=== PATIENT | female | born 1950 | race Caucasian/White ===

== ENCOUNTER 2019-04-28 03:56 | Emergency (ER) | payer OTHER, SELFPAY ==
[2019-04-28 04:00] VITALS: BP 165/105; PULSE 77; RESP 18; TEMP 36.6; O2SAT 98
--- NOTE | 2019-04-28 04:01 | ECG_ITS ---
Measurements Intervals Oliver Rate: 66 P: 56 OR: 124 QRS: 29 QRSD: 83 T: 22 QT: 384 QTc: 404 Interpretive Statements SINUS RHYTHM EARLY PRECORDIAL R/S TRANSITION BASELINE ARTIFACT- II, III, AVR, AVL, AVF BORDERLINE ECG Electronically Signed On 04-28-2019 8:42:55 CDT by Simon Robin D.O.
--- NOTE | 2019-04-28 04:26 | ED.GENADULT ---
HPI - General Adult General Chief complaint: Chest Pain Stated complaint: left arm pain History of Present Illness HPI narrative: Caren is a 68-year-old woman with a past medical history of tobacco abuse that presented to the emergency department with pain just medial to her left shoulder blade. She woke up with pain in her left shoulder but so she took some Aleve. It did not improvement started to radiate down into her left hand. After that she became concerned and came to the emergency department. She denies any true chest pain, nausea, vomiting, syncope/near syncope and diaphoresis. The chest pain is not worse with activity. It is worse with pushing out with her arm. She took 1 baby aspirin before she came in. Related Data Allergies Allergy/AdvReac Type Severity Reaction Status Date / Time acetaminophen Allergy Unknown NAUSEA Verified 04/28/19 04:34 codeine Allergy Unknown NAUSEA Verified 04/28/19 04:34 VICODEN Allergy Unknown NAUSEA Uncoded 04/28/19 04:34 Review of Systems Constitutional: Constitutional: Denies chills, Denies fatigue, Denies fever(s) and Denies weakness Eyes: Eyes: Reports no additional eye complaints ENT: Reports system reviewed and no additional complaints, except as documented Cardiovascular: Cardiovascular: Reports no additional cardiovascular complaints Respiratory: Respiratory: Reports no additional respiratory complaints Gastrointestinal: Gastrointestinal: Reports no additional gastrointestinal complaints Genitourinary: Genitourinary: Reports no additional female genitourinary complaints Musculoskeletal: Musculoskeletal: Reports as per HPI Integumentary/Breasts: Skin/Breast: Reports system reviewed and no additional complaints, except as docu Neurologic: Reports system reviewed and no additional complaints, except as documented Psychiatric: Psychiatric: Reports no additional psychiatric complaints Endocrine: Endocrine: Reports no additional endocrine complaints Hematologic/Lymphatic: Hematologic/Lymphatic: Reports no additional hematologic/lymphatic complaints Allergic/Immunologic: Allergic/Immunologic: Reports no additional allergic/immunologic complaints Exam Const: General: no acute distress and alert Orientation/consciousness: patient oriented x3 Limitations: No altered mental status HENMT: Head: normal to inspection Other: normocephalic, atraumatic Eyes: Conjunctivae: conjunctivae normal Pupils: Equal, round and reactive pupils present Neck: Neck: normal visual inspection Chest: Chest palpation & inspection: normal inspection of the chest Resp: Effort & Inspection: normal respiratory effort, not labored, not tachypneic and no use of accessory muscles Auscultation: clear to auscultation bilaterally Cardio: Rate: regular rate Rhythm: regular rhythm Heart sounds: Murmur heart sound present Other: no lower extremity edema GI: Inspection: non-distended GI Palp: Yes Soft to palpation, No Tenderness to palpation present (GI) and No Guarding due to palpation present (GI) : General: Yes no CVA tenderness Skin: General skin exam: normal color Rashes: no rashes Neuro: General: patient oriented x3 and moves all extremities Extrem: General: normal to inspection and no edema Other: has tenderness to palpation over the muscles just medial to the left shoulder blade. 5/5 strength in all planes of motion of the shoulder. Negative crossover, negative empty can, negative Troy's, pain was elicited on resisted shoulder flexion. Spurling's maneuver causes reproducible pain in the area just medial to the left shoulder blade. no TTP of the shoulder. Psych: Mental Status: mental status grossly normal Course Course Emergency Course: Caren seen and evaluated. EKG was done that showed normal sinus rhythm at 66 bpm, normal axis, and no ST elevation or depression. Labs were ordered as well as aspirin and nitro. with the EKG normal and her heart score is 3 making cardiac etio
[2019-04-28] MEDS: NITROGLYCERIN SL 0.4 MG TABLET SUBLINGUAL (04:39)
[2019-04-28] MEDS: ASPIRIN 81 MG ENTERIC TABLET 243 MG PO (04:43)
[2019-04-28] MEDS: ASPIRIN 81 MG CHEWABLE TABLET (04:47)
[2019-04-28 04:51] VITALS: BP 122/69; PULSE 80; RESP 20
[2019-04-28 04:54] LABS: Basophils Absolute Auto 0.04 K/mm3 (0.00-0.10); Basophils Percent Auto 0.8 % (0.0-1.0); Eosinophils Absolute Auto 0.06 K/mm3 (0.02-0.50); Eosinophils Percent Auto 1.2 % (1.0-6.0); Hematocrit 38.7 % (35.0-42.0); Hemoglobin 13.2 g/dL (11.7-13.8); Immature Granulocyte Absolute 0.01 K/mm3 (0.00-0.00); Immature Granulocyte Percent A 0.2 % (0.0-0.0); Lymphocytes Absolute Auto 1.86 K/mm3 (1.10-4.50); Lymphocytes Percent Auto 37.7 % (18.0-42.0); Mean Corpuscular HGB Conc 34.1 g/dL (32.0-36.0); Mean Corpuscular Volume 93.7 fL (78.0-102.0); Mean Platelet Volume 9.9 fl (9.2-11.8); Monocytes Absolute Auto 0.31 K/mm3 (0.10-0.90); Monocytes Percent Auto 6.3 % (2.0-11.0); Neutrophils Absolute Auto 2.7 K/mm3 (1.7-7.2); Neutrophils Percent Auto 53.8 % (50.0-70.0); Platelet Count Result 260 K/mm3 (150-420); Red Blood Count 4.13 M/mm3 (4.20-5.40); Red Cell Distribution Width 13.5 % (11.6-14.4); White Blood Count 4.9 K/mm3 (4.8-10.8)
[2019-04-28 05:05] LABS: Prothrombin Time 9.9 Seconds (9.64-11.0)
[2019-04-28 05:13] LABS: Alanine Aminotransferase 27 U/L (14-59); Albumin Level 3.3 g/dL (3.4-5.0); Alkaline Phosphatase 95 U/L (46-116); Aspartate Amino Transferase 19 U/L (15-37); Bilirubin,Total 0.4 mg/dL (0.00-1.00); Blood Urea Nitrogen 19 mg/dL (7-18); Calcium 9.1 mg/dL (8.5-10.1); Carbon Dioxide 25 mmol/L (21-32); Chloride 105 mmol/L (98-108); Estimated CRCL calculation 46 ml/min; Estimated Glomerular Filt Rate > 60; Glucose 106 mg/dL (70-99); Lipase 132 U/L (73-393); Osmolality Calculated 294 mOsm/kg (285-295); Sodium 141 mmol/L (136-145); Total Protein 6.7 g/dL (6.4-8.2)
[2019-04-28 05:21] LABS: Troponin I < 0.02 ng/mL (0.00-0.056)
[2019-04-28 05:25] LABS: BNP 25.4 pg/mL (0-100)
[2019-04-28] MEDS: CYCLOBENZAPRINE HCL 10 MG TABLET PO (05:29)
[2019-04-28 05:32] VITALS: BP 106/60; PULSE 86; RESP 18; TEMP 36.6; O2SAT 98
== END 2019-04-28 05:38 | disposition home or self-care (01) ==
PROVIDERS: Emergency Provider Family Medicine; PCP Internal Medicine
DX: M62.838 Other muscle spasm (principal)
CPT/HCPCS: 36415; 80053; 83690; 83880; 84484; 85025; 85610; 93005; 99283; 99284; A9270

== ENCOUNTER 2019-11-12 07:00 | Outpatient (CLI) | payer MEDICARE, SELFPAY ==
[2019-11-12 07:19] LABS: Basophils Absolute Auto 0.04 K/mm3 (0.00-0.10); Basophils Percent Auto 0.8 % (0.0-1.0); Hematocrit 44.9 % (35.0-42.0); Hemoglobin 14.9 g/dL (11.7-13.8); Immature Granulocyte Absolute 0.02 K/mm3 (0.00-0.00); Immature Granulocyte Percent A 0.4 % (0.0-0.0); Lymphocytes Absolute Auto 2.39 K/mm3 (1.10-4.50); Lymphocytes Percent Auto 47.3 % (18.0-42.0); Mean Corpuscular HGB Conc 33.2 g/dL (32.0-36.0); Mean Corpuscular Hemoglobin 31.5 pg (27.0-31.0); Mean Corpuscular Volume 94.9 fL (78.0-102.0); Mean Platelet Volume 9.9 fl (9.2-11.8); Monocytes Percent Auto 5.9 % (2.0-11.0); Neutrophils Absolute Auto 2.2 K/mm3 (1.7-7.2); Neutrophils Percent Auto 43.6 % (50.0-70.0); Platelet Count Result 262 K/mm3 (150-420); Red Blood Count 4.73 M/mm3 (4.20-5.40); Red Cell Distribution Width 13.7 % (11.6-14.4); White Blood Count 5.1 K/mm3 (4.8-10.8)
[2019-11-12 08:09] LABS: Alanine Aminotransferase 25 U/L (14-59); Alkaline Phosphatase 99 U/L (46-116); Anion Gap 8 mmol/L (8-16); Aspartate Amino Transferase 15 U/L (15-37); Bilirubin,Total 0.5 mg/dL (0.00-1.00); Blood Urea Nitrogen 19 mg/dL (7-18); Calcium 9.5 mg/dL (8.5-10.1); Carbon Dioxide 27 mmol/L (21-32); Chloride 106 mmol/L (98-108); Cholesterol 268 mg/dL (0-200); Estimated Glomerular Filt Rate > 60; Glucose 95 mg/dL (70-99); HDL Direct 64 mg/dL (40-60); LDL Cholesterol Calculated 182 mg/dL (<130); Osmolality Calculated 294 mOsm/kg (285-295); Potassium 4.6 mmol/L (3.5-5.1); Sodium 141 mmol/L (136-145); Thyroid Stimulating Hormone 2.01 uIU/mL (0.36-3.74); Total Protein 6.9 g/dL (6.4-8.2); Triglycerides 112 mg/dL (0-150)
[2019-11-12 08:18] LABS: Add Urine Microscopic? YES; Appearance Urine Clear (Clear); Bilirubin Urine Negative (Negative); Blood Urine 3+ (Negative); Color Urine Yellow (Yellow); Glucose Urine UA Negative (Negative); Ketones Urine Negative (Negative); Leukocyte Esterase Ur Negative LEU/UL (Negative); Nitrate Urine Negative (Negative); Protein Urine Negative (Negative); Specific Grav Ur 1.025 (1.010-1.020); Urobilinogen Urine 0.2 mg/dL (0.2-1.0)
[2019-11-12 08:31] LABS: Bacteria Urine Trace /hpf; Squamous Epithelial Cell Urine Few /hpf (Few); WBC Urine 0-3 /hpf (0-3)
== END 2019-11-12 07:01 | disposition home or self-care (01) ==
LOC: CHSLAB 07:05
PROVIDERS: PCP Internal Medicine; Visit Provider Internal Medicine
DX: E78.00 Pure hypercholesterolemia, unspecified (principal); R53.83 Other fatigue; Z00.00 Encounter for general adult medical examination without abnormal findings
CPT/HCPCS: 36415; 80053; 80061; 81001; 84443; 85025

== ENCOUNTER 2020-05-23 09:49 | Outpatient (CLI) | payer MEDICARE, SELFPAY ==
--- NOTE | ~2020-05-23 | MM_ITS ---
EXAMINATION: MM screening [facility] BI w chris HISTORY: Screening TECHNIQUE: Craniocaudal and mediolateral oblique 3-D tomosynthesis images were obtained and synthetic 2-D images were generated. CAD analysis was submitted and interpreted. COMPARISON: Comparison to multiple prior studies sequentially, with oldest reviewed study dated 09/2013. BREAST PARENCHYMAL COMPOSITION: There are scattered areas of fibroglandular density. FINDINGS: There is no evidence of suspicious mass, calcification, or architectural distortion to sugg est malignancy in either breast. There has been no suspicious interval change. IMPRESSION: 1. No mammographic evidence of malignancy. 2. Recommend routine screening mammography in one year. BI-RADS Category 1: Negative Reviewed, dictated and finalized at location A.
== END 2020-05-23 09:50 | disposition home or self-care (01) ==
LOC: CHSIMG 09:51
PROVIDERS: PCP Internal Medicine; Visit Provider Internal Medicine
DX: Z12.31 Encounter for screening mammogram for malignant neoplasm of breast (principal)
CPT/HCPCS: 77063; 77067

== ENCOUNTER → 2020-06-25 00:16 | Outpatient (CLI) | payer MEDICARE, SELFPAY ==
[2020-06-25 18:48] LABS: SARS-CoV-2 RNA PCR Negative
== END ==
PROVIDERS: PCP Internal Medicine; Visit Provider Surgery
DX: Z01.812 Encounter for preprocedural laboratory examination (principal); Z20.822 Contact with and (suspected) exposure to COVID-19
CPT/HCPCS: C9803; U0003; U0005

== ENCOUNTER 2020-06-28 01:56 | Day surgery (SDC) | payer MEDICARE, SELFPAY ==
[2020-06-19 13:25] VITALS: BMI 26.2
[2020-06-28 06:40] VITALS: BP 144/74; PULSE 80; RESP 18; TEMP 36.1; O2SAT 99; BMI 25.7
[2020-06-28] MEDS: LACTATED RINGERS 1,000 ML 150 ML IV CONT (06:58)
--- NOTE | 2020-06-28 07:57 | PM.IMHP ---
H&P: HPI History of Present Illness Date/Time: 06/28/20 07:57 Chief Complaint: history of colon polyps Narrative: this is a 69-year-old woman who presents for colonoscopy. Her last colonoscopy was 5 years ago. Polyps were removed at that time. She denies any family history of colon cancer. She denies any hematochezia or melena. Review of Systems Review of Systems: All systems reviewed & are unremarkable except as noted in HPI and below Constitutional: Constitutional: Denies chills, Denies fever(s), Denies headache(s) and Denies weight loss Eyes: Eyes: Denies change in vision ENT: Denies dizziness, Denies headache(s), Denies neck mass and Denies throat swelling Cardiovascular: Cardiovascular: Denies chest pain, Denies lightheadedness and Denies dyspnea Respiratory: Respiratory: Denies cough, Denies dyspnea and Denies wheezing Gastrointestinal: Gastrointestinal: Denies abdominal pain, Denies change in bowel habits, Denies nausea and Denies vomiting Genitourinary: Genitourinary: Denies hematuria and Denies dysuria Musculoskeletal: Musculoskeletal: Reports as per HPI Integumentary/Breasts: Skin/Breast: Reports as per HPI Neurologic: Denies dizziness and Denies headache(s) Allergic/Immunologic: Allergic/Immunologic: Denies throat swelling and Denies wheezing [facility] Past Medical History Medical History (Updated 06/28/20 @ 07:58 by Rory Barton DO) Arthritis Social History Social History Years smoked: 50 Smoking status: Current every day smoker Tobacco type: cigarettes Alcohol intake: former Substance use: never Substance use type: does not use Living arrangements: with family Gender identity (if verbalized by the patient): Female Spiritual care concerns: No Meds Home Medications and Allergies Home Medications Medication Instructions Recorded Confirmed Type No Home Medications 06/19/20 06/28/20 History Allergies Allergy/AdvReac Type Severity Reaction Status Date / Time acetaminophen Allergy Unknown NAUSEA Verified 06/28/20 06:38 codeine Allergy Unknown NAUSEA Verified 06/28/20 06:38 VICODEN Allergy Unknown NAUSEA Uncoded 06/28/20 06:38 Vital Signs Vital Signs - 24 hr 06/28/20 06:40 Temperature 36.1 C L Pulse Rate 80 Respiratory Rate 18 Blood Pressure 144/74 H Pulse Oximetry 99 Exam Const: General: no acute distress and alert Orientation/consciousness: patient oriented x3 HENMT: Head: normocephalic and atraumatic Ears: hearing grossly normal bilaterally General nose exam: Normal nares present Mouth: Yes Normal oral and palatal mucosa present Eyes: Periorbital: periorbital findings normal Sclera: sclerae normal EOM: EOMs intact bilaterally Neck: Neck: normal visual inspection, no lymphadenopathy and trachea midline Chest: Chest palpation & inspection: normal inspection of the chest Resp: Effort & Inspection: normal respiratory effort Auscultation: clear to auscultation bilaterally Cardio: Jugular venous distension: no JVD Rate: regular rate Rhythm: regular rhythm Heart sounds: S1 normal heart sound present and S2 normal heart sound present Peripheral pulses: Peripheral pulses 2+ throughout GI: Inspection: normal to inspection GI Palp: Yes Soft to palpation, No Tenderness to palpation present (GI), No Guarding due to palpation present (GI) and No Rebound tenderness present Percussion: Yes normal to percussion Auscultation: normal bowel sounds : General: Yes no CVA tenderness Back/Spine/Pelvis: Back: no CVA tenderness Neuro: General: patient oriented x3, no focal motor deficits and CN's II-XI intact bilaterally Cognition (Neuro): normal cognition Speech: normal speech Motor exam (neuro): 5/5 motor strength present throughout Extrem: General: capillary refill normal and no clubbing, cyanosis or edema Assessment and Plan Assessment and plan (1) History of colon polyps:
[2020-06-28 08:41] VITALS: BP 90/39; PULSE 74; RESP 20; O2SAT 99
[2020-06-28 08:51] VITALS: BP 130/51; PULSE 67; RESP 18; O2SAT 100
[2020-06-28 09:01] VITALS: BP 121/56; PULSE 76; RESP 22; O2SAT 98
== END 2020-06-28 09:14 | disposition home or self-care (01) ==
PROVIDERS: PCP Internal Medicine; Visit Provider Surgery
PROC: 0DJD8ZZ Inspection of Lower Intestinal Tract, Via Natural or Artificial Opening Endoscopic (ICD-10-PCS; CPT 45378; principal; 2020-06-28 08:00)
DX: Z12.11 Encounter for screening for malignant neoplasm of colon (principal); D12.2 Benign neoplasm of ascending colon; K63.5 Polyp of colon; K64.8 Other hemorrhoids; F17.210 Nicotine dependence, cigarettes, uncomplicated
CPT/HCPCS: 45380; 88305; C9803; J2704; J7120; U0003; U0005

== ENCOUNTER 2020-12-15 07:10 | Outpatient (CLI) | payer MEDICARE, SELFPAY ==
[2020-12-15 07:25] LABS: Basophils Absolute Auto 0.04 K/mm3 (0.00-0.10); Basophils Percent Auto 0.8 % (0.0-1.0); Eosinophils Absolute Auto 0.09 K/mm3 (0.02-0.50); Eosinophils Percent Auto 1.7 % (1.0-6.0); Hematocrit 41.9 % (35.0-42.0); Hemoglobin 14.2 g/dL (11.7-13.8); Immature Granulocyte Absolute 0.03 K/mm3 (0.00-0.00); Immature Granulocyte Percent A 0.6 % (0.0-0.0); Lymphocytes Absolute Auto 2.68 K/mm3 (1.10-4.50); Lymphocytes Percent Auto 51.4 % (18.0-42.0); Mean Corpuscular HGB Conc 33.9 g/dL (32.0-36.0); Mean Corpuscular Hemoglobin 32.3 pg (27.0-31.0); Mean Corpuscular Volume 95.2 fL (78.0-102.0); Mean Platelet Volume 9.6 fl (9.2-11.8); Monocytes Absolute Auto 0.33 K/mm3 (0.10-0.90); Monocytes Percent Auto 6.3 % (2.0-11.0); Neutrophils Percent Auto 39.2 % (50.0-70.0); Platelet Count Result 266 K/mm3 (150-420); Red Cell Distribution Width 13.4 % (11.6-14.4); White Blood Count 5.2 K/mm3 (4.8-10.8)
[2020-12-15 07:27] LABS: Add Urine Microscopic? YES; Bilirubin Urine Negative (Negative); Blood Urine 3+ (Negative); Color Urine Light Yellow (Yellow); Glucose Urine UA Negative (Negative); Ketones Urine Negative (Negative); Leukocyte Esterase Ur Trace (Negative); Nitrate Urine Negative (Negative); Protein Urine Negative (Negative); Specific Grav Ur 1.025 (1.010-1.020); Urobilinogen Urine 0.2 mg/dL (0.2-1.0)
[2020-12-15 07:30] LABS: Appearance Urine Sl Cloudy (Clear); Bacteria Urine 1+ /hpf; Squamous Epithelial Cell Urine Moderate /hpf (Few); WBC Urine None seen /hpf (0-3)
[2020-12-15 08:24] LABS: Alanine Aminotransferase 25 U/L (14-59); Albumin Level 3.7 g/dL (3.4-5.0); Alkaline Phosphatase 104 U/L (46-116); Anion Gap 10 mmol/L (8-16); Aspartate Amino Transferase 11 U/L (15-37); Bilirubin,Total 0.3 mg/dL (0.00-1.00); Blood Urea Nitrogen 12 mg/dL (7-18); Calcium 9.2 mg/dL (8.5-10.1); Carbon Dioxide 29 mmol/L (21-32); Chloride 104 mmol/L (98-108); Cholesterol 275 mg/dL (0-200); Estimated Glomerular Filt Rate > 60; Glucose 95 mg/dL (70-99); HDL Direct 63 mg/dL (40-60); LDL Cholesterol Calculated 197 mg/dL (<130); Osmolality Calculated 295 mOsm/kg (285-295); Potassium 4.2 mmol/L (3.5-5.1); Sodium 143 mmol/L (136-145); Thyroid Stimulating Hormone 3.06 uIU/mL (0.36-3.74); Total Protein 6.6 g/dL (6.4-8.2); Triglycerides 75 mg/dL (0-150)
== END 2020-12-15 07:11 | disposition home or self-care (01) ==
LOC: CHSLAB 07:11
PROVIDERS: PCP Internal Medicine; Visit Provider Internal Medicine
DX: E78.5 Hyperlipidemia, unspecified (principal); R53.83 Other fatigue; Z00.00 Encounter for general adult medical examination without abnormal findings
CPT/HCPCS: 36415; 80053; 80061; 81001; 84443; 85025

== ENCOUNTER 2021-06-24 07:50 | Outpatient (CLI) | payer MEDICARE, SELFPAY ==
--- NOTE | ~2021-06-24 | MM_ITS ---
EXAMINATION: MM screening [facility] BI w chris HISTORY: Screening mammogram TECHNIQUE: Craniocaudal and mediolateral oblique 3-D tomosynthesis images were obtained and synthetic 2-D images were generated. CAD analysis was submitted and interpreted. COMPARISON: 05/23/2020, 03/09/2019 BREAST PARENCHYMAL COMPOSITION: There are scattered areas of fibroglandular density. FINDINGS: There is no suspicious mass, calcification, or architectural distortion to suggest malignan cy in either breast. There has been no suspicious interval change. IMPRESSION: 1. No mammographic evidence of malignancy. 2. Recommend routine screening mammography in one year. BI-RADS Category 1: Negative Reviewed, dictated and finalized at location A.
== END 2021-06-24 07:51 | disposition home or self-care (01) ==
LOC: CHSIMG 07:53
PROVIDERS: PCP Internal Medicine; Visit Provider Internal Medicine
DX: Z12.31 Encounter for screening mammogram for malignant neoplasm of breast (principal)
CPT/HCPCS: 77063; 77067

== ENCOUNTER 2021-11-27 12:09 | Emergency (ER) | payer MEDICARE, SELFPAY ==
--- NOTE | ~2021-11-27 | CT_ITS ---
EXAMINATION: CT facial bones wo con DATE: 11/27/2021 13:22 INDICATION: Right pinna infection. TECHNIQUE: Computed tomography (CT) of the facial bones and maxillofacial region was performed withou t intravenous contrast. Automated exposure control and iterative reconstruction technique were employ ed. The dose-length product was 313.03 mGy-cm. COMPARISON: None. FINDINGS: There is swelling and fat stranding of the pinna, right external auditory canal, and right parotid gland. There is asymmetric mild stenosis of the right external auditory canal. No sialolith. The mastoid air cells and tympanic cavities are normal. There is symmetric mild osteoarthritis of the temporomandibular joints. There is mild cervical spondylosis. IMPRESSION: 1. Inflammation of the right pinna, right external auditory canal, and right parotid gland. Reviewed, dictated and finalized at location B. IMPRESSION: 1. Inflammation of the right pinna, right external auditory canal, and right pa rotid gland.
[2021-11-27 12:26] VITALS: BP 132/62; PULSE 92; RESP 20; TEMP 36.9; O2SAT 96
[2021-11-27] MEDS: ACETAMINOPHEN 325 MG TABLET 650 MG PO (13:22)
[2021-11-27] MEDS: cefTRIAXone 1 GM, LIDOCAINE HCL 1% LOCAL INJ 2.1 ML IM (13:23)
--- NOTE | 2021-11-27 13:34 | ED.EAR ---
HPI - Ear Problem General Chief complaint: Ear Stated complaint: EAR PAIN Time Seen by Provider: 11/27/21 12:13 Source: patient and RN notes reviewed Mode of arrival: ambulatory Limitations: no limitations History of Present Illness Complaint: ear pain Location: right ear Duration: constant Severity: moderate Relieving factors: nothing Exacerbating factors: nothing Discharge from ear: Reports no Associated symptoms ear: external ear tenderness and ear swelling Treatment prior to arrival: none Related Data Allergies Allergy/AdvReac Type Severity Reaction Status Date / Time codeine Allergy Unknown NAUSEA Verified 11/27/21 12:30 Review of Systems Review of Systems: All systems reviewed & are unremarkable except as noted in HPI and below Constitutional: Constitutional: Reports no additional constitutional complaints Eyes: Eyes: Reports no additional eye complaints ENT: Reports system reviewed and no additional complaints, except as documented Comments: swollen, discolored right pinna with posterior redness. no acute ear drainage seen. Pharynx clear. Cardiovascular: Cardiovascular: Reports no additional cardiovascular complaints Respiratory: Respiratory: Reports no additional respiratory complaints Gastrointestinal: Gastrointestinal: Reports no additional gastrointestinal complaints Genitourinary: Genitourinary: Reports no additional female genitourinary complaints Musculoskeletal: Musculoskeletal: Reports no additional musculoskeletal complaints Integumentary/Breasts: Skin/Breast: Reports system reviewed and no additional complaints, except as docu Neurologic: Reports system reviewed and no additional complaints, except as documented Psychiatric: Psychiatric: Reports no additional psychiatric complaints Endocrine: Endocrine: Reports no additional endocrine complaints Hematologic/Lymphatic: Hematologic/Lymphatic: Reports no additional hematologic/lymphatic complaints Allergic/Immunologic: Allergic/Immunologic: Reports no additional allergic/immunologic complaints [facility] Past Medical History Medical History Arthritis Otitis externa Social History Social History Years smoked: 50 Smoking status: Current every day smoker Tobacco type: cigarettes Alcohol intake: former Substance use: never Substance use type: does not use Gender identity (if verbalized by the patient): Female Spiritual care concerns: No Exam Const: General: healthy appearing, no acute distress and well nourished Nutritional Appearance: well nourished Orientation/consciousness: patient oriented x3 Limitations: no limitations HENMT: Head: normal to inspection Ears: external ears normal, TM's normal bilaterally and EAC's normal Face/Nose/Sinus: Normal external nose present, Normal nares present, normal facial exam and sinuses nontender Face and sinus: normal facial exam and sinuses nontender Mouth: Yes Normal oral and palatal mucosa present and Yes moist mucous membranes Teeth and gingiva: dentition normal Throat: posterior oropharynx normal Other: swollen, discolored right ear pinna with posterior redness. no ear discharge, mildly tender Eyes: Conjunctivae: conjunctivae normal Pupils: Equal, round and reactive pupils present EOM: EOMs intact bilaterally Neck: Neck: normal visual inspection, no lymphadenopathy and no meningeal signs Chest: Chest palpation & inspection: normal inspection of the chest Resp: Effort & Inspection: normal respiratory effort Auscultation: clear to auscultation bilaterally Cardio: Rate: regular rate Rhythm: regular rhythm GI: GI Palp: Yes Soft to palpation and No Tenderness to palpation present (GI) Auscultation: normal bowel sounds : General: Yes bladder normal to palpation and Yes no CVA tenderness Bimanual exam- vagina & uterus: bladder normal to palpation Back/
[2021-11-27 13:42] VITALS: BP 128/60; PULSE 88; RESP 20; TEMP 36.8; O2SAT 96
== END 2021-11-27 13:42 | disposition home or self-care (01) ==
PROVIDERS: Emergency Provider Emergency Medicine; PCP Internal Medicine
DX: H60.91 Unspecified otitis externa, right ear (principal)
CPT/HCPCS: 70486; 96372; 99284; A9270; J0696

== ENCOUNTER 2021-12-14 07:02 | Outpatient (CLI) | payer MEDICARE, SELFPAY ==
[2021-12-14 07:23] LABS: Hemoglobin 13.8 g/dL (11.7-13.8); Mean Corpuscular HGB Conc 32.9 g/dL (32.0-36.0); Mean Corpuscular Hemoglobin 30.3 pg (27.0-31.0); Mean Corpuscular Volume 92.1 fL (78.0-102.0); Mean Platelet Volume 9.8 fl (9.2-11.8); Platelet Count Result 278 K/mm3 (150-420); Red Blood Count 4.56 M/mm3 (4.20-5.40); Red Cell Distribution Width 15.1 % (11.6-14.4); White Blood Count 4.1 K/mm3 (4.8-10.8)
[2021-12-14 07:30] LABS: Appearance Urine Clear (Clear); Bilirubin Urine Negative (Negative); Blood Urine 3+ (Negative); Glucose Urine UA Negative (Negative); Ketones Urine Negative (Negative); Leukocyte Esterase Ur Negative (Negative); Nitrate Urine Negative (Negative); Protein Urine Negative (Negative); Urobilinogen Urine 0.2 mg/dL (0.2-1.0); pH Urine 6.5 (5.0-8.0)
[2021-12-14 07:35] LABS: Add Urine Microscopic? YES; Bacteria Urine 1+ /hpf; Color Urine Light Yellow (Yellow); Squamous Epithelial Cell Urine Few /hpf (Few); WBC Urine None seen /hpf (0-3)
[2021-12-14 07:41] LABS: Alanine Aminotransferase 21 U/L (14-59); Albumin Level 3.5 g/dL (3.4-5.0); Alkaline Phosphatase 105 U/L (46-116); Anion Gap 5 mmol/L (8-16); Aspartate Amino Transferase 17 U/L (15-37); Bilirubin,Total 0.4 mg/dL (0.00-1.00); Blood Urea Nitrogen 14 mg/dL (7-18); Calcium 9.1 mg/dL (8.5-10.1); Carbon Dioxide 28 mmol/L (21-32); Chloride 107 mmol/L (98-108); Cholesterol 237 mg/dL (0-200); Estimated Glomerular Filt Rate > 60; Glucose 93 mg/dL (70-99); HDL Direct 67 mg/dL (40-60); LDL Cholesterol Calculated 154 mg/dL (<130); Osmolality Calculated 290 mOsm/kg (285-295); Potassium 4.2 mmol/L (3.5-5.1); Sodium 140 mmol/L (136-145); Thyroid Stimulating Hormone 2.92 uIU/mL (0.36-3.74); Total Protein 7.1 g/dL (6.4-8.2); Triglycerides 78 mg/dL (0-150)
[2021-12-14 07:46] LABS: Band Neutrophils Percent 1 % (0-6); Lymphocytes Absolute Manual 2.37 K/mm3 (1.1-4.5); Lymphocytes Percent Manual 58 % (18-44); Neutrophils Absolute Manual 1.27 K/mm3 (1.7-7.2); Neutrophils Percent Manual 30 % (46-73); Total Cells Counted 100
[2021-12-14 07:47] LABS: Basophils Percent Manual 0 % (0-1); Eosinophils Absolute Manual 0.12 K/mm3 (0.02-0.5); Eosinophils Percent Manual 3 % (1-6); Monocytes Absolute Manual 0.32 K/mm3 (0.1-0.90); Monocytes Percent Manual 8 % (3-9); Platelet Estimate Adequate (Adequate)
== END 2021-12-14 07:03 | disposition home or self-care (01) ==
LOC: CHSLAB 07:03
PROVIDERS: PCP Internal Medicine; Visit Provider Internal Medicine
DX: E78.5 Hyperlipidemia, unspecified (principal); R53.83 Other fatigue; Z00.00 Encounter for general adult medical examination without abnormal findings
CPT/HCPCS: 36415; 80053; 80061; 81001; 84443; 85025

== ENCOUNTER 2021-12-16 12:14 | Outpatient (CLI) | payer MEDICARE, SELFPAY ==
[2021-12-23 17:11] LABS: Reference Lab Test Name FLOW CYTOMETRY
== END 2021-12-16 12:15 | disposition home or self-care (01) ==
LOC: CHSLAB 12:16
PROVIDERS: PCP Internal Medicine; Visit Provider Internal Medicine
DX: D72.820 Lymphocytosis (symptomatic) (principal)
CPT/HCPCS: 36415; 88184; 88185; 88189

== ENCOUNTER 2022-01-08 13:27 | Outpatient (CLI) | payer MEDICARE, SELFPAY ==
[2022-01-10 15:39] LABS: TB Skin Test Erythema 1 mm; TB Skin Test Induration 0 mm (0-10); TB Skin Test Interpretation Negative (Negative); TB Skin Test Site Left Arm
== END 2022-01-08 13:28 | disposition home or self-care (01) ==
LOC: CHSLAB 13:30
PROVIDERS: PCP Internal Medicine; Visit Provider Internal Medicine
DX: Z11.1 Encounter for screening for respiratory tuberculosis (principal)
CPT/HCPCS: 36415; 86580

== ENCOUNTER 2022-01-10 15:36 | Outpatient (CLI) | payer MEDICARE, SELFPAY ==
--- NOTE | ~2022-01-10 | CT_ITS ---
EXAMINATION: CT lung screening DATE: 01/10/2022 15:58 INDICATION: History of nicotine dependence. TECHNIQUE: Computed tomography (CT) of the chest was performed without intravenous contrast. The dose -length product was 54.17 mGy-cm. Automated exposure control and iterative reconstruction technique w ere employed. COMPARISON: None FINDINGS: There are nonenlarged left axillary lymph nodes. Nonenlarged mediastinal lymph nodes, likel y reactive. There is atherosclerosis of the aorta and coronary arteries. No significant pleural or pe ricardial effusion. Generalized aspects of the upper abdomen are unremarkable. There are innumerable bilateral pulmonary nodules in both lungs, largest measuring 4 mm in the lower lobes. No endobronchia l lesions. No pneumothorax. No focal consolidation. No acute osseous abnormality. No focal lytic or b lastic lesions. IMPRESSION: 1. Lung-RADS category 2: Benign appearance or behavior. Continue annual screening with noncontrast lo w-dose chest CT in 12 months. Reviewed, dictated and finalized at location A. [employer] IMPRESSION: 1. Lung-RADS category 2: Benign appearance or behavior. Continue annual screeni ng with noncontrast low-dose chest CT in 12 months.
== END 2022-01-10 15:37 | disposition home or self-care (01) ==
PROVIDERS: PCP Internal Medicine; Visit Provider Internal Medicine
DX: Z12.2 Encounter for screening for malignant neoplasm of respiratory organs (principal); Z87.891 Personal history of nicotine dependence
CPT/HCPCS: 71271

== ENCOUNTER 2022-01-15 12:48 | Outpatient (CLI) | payer MEDICARE, SELFPAY ==
--- NOTE | ~2022-01-15 | DEXA_ITS ---
Bone Density Report Name: EMELY MIRANDA Age: 71 Sex: Female Ethnicity: White Date of : 1950 Indication: postmenopausal; screening for osteoporosis; prior fracture; Referring Provider: Stephon Dunn Study: Bone densitometry was performed. Exam Date: January 15, 2022 Accession number: [id number] Bone Density: Region BMD T-score Z-score Classification AP Spine(L1-L4) 1.011 -0.3 1.8 Normal Femoral Neck (Left) 0.766 -0.7 1.1 Normal Total Hip (Left) 0.849 -0.8 0.8 Normal Femoral Neck (Right) 0.723 -1.1 0.7 Osteopenia Total Hip (Right) 0.815 -1.0 0.5 Normal Femoral Neck Mean 0.745 -0.9 0.9 Normal Total Hip Mean 0.832 -0.9 0.6 Normal World Health Organization criteria for BMD impression classify patients as: Normal (T-score at or above -1.0), Osteopenia (T-score between -1.0 and -2.5), or Osteoporosis (T-score at or below -2.5). 10-year Fracture Risk(1): Major Osteoporotic Fracture 14% Hip Fracture 2.6% Reported Risk Factors: [place] (), Neck BMD=0.723, BMI=24.2, previous fracture, smoking (1) FRAX(R) Version 3.08. Fracture probability calculated for an untreated patient. Fracture probability may be lower if the patient has received treatment. Clinical Information Provided by Patient: Has had a low trauma fracture Smokes Patient maximum height was 59.5 Menopause Age: 46 No regular weight bearing exercise Drinks caffeinated beverages Onset of menses at age 14 Number of children 2 Impression: The patient has low bone mass, based on the Right Femoral Neck T-score. The patient has risk factors, including: smoking, previous fracture. Discussion: BONE DENSITY IS LOW AT ONE OR MORE SKELETAL SITES. This patient's lowest T-score is low at one or more skeletal sites. It meets the World Health Organization's (WHO) criteria for ?low bone mass? (T-score between -1.0 and -2.5). The patient's 10-year risk of fracture as calculated by FRAX is less than the threshold where pharmacological therapy is recommended by the National Osteoporosis Foundation (NOF). However, all treatment decisions require clinical judgment and consideration of individual patient factors, including patient preferences, comorbidities, previous drug use, risk factors not captured in the FRAX model (e.g., frailty, falls, vitamin D deficiency, increased bone turnover, interval significant decline in bone density) and possible under or overestimation of fracture risk by FRAX. The patient should follow a healthful lifestyle (good nutrition with adequate calcium and vitamin D, and appropriate weight-bearing exercise). Follow-Up: Consider repeating this study in 2 to 3 years to reassess this patient's status, or sooner if there is some new clinical indication. Reported by: Dr. Tomas
== END 2022-01-15 12:49 | disposition home or self-care (01) ==
LOC: CHSIMG 12:50
PROVIDERS: PCP Internal Medicine; Visit Provider Internal Medicine
DX: Z78.0 Asymptomatic menopausal state (principal); Z13.820 Encounter for screening for osteoporosis
CPT/HCPCS: 77080

== ENCOUNTER 2022-06-03 11:51 | Outpatient (CLI) | payer MEDICARE, SELFPAY ==
--- NOTE | ~2022-06-03 | XR_ITS ---
EXAMINATION: XR chest 2V Exam Date/Time: 06/03/2022 12:00 CDT HISTORY: pneumonia atypical,PREVIOUS SMOKER,COPD Comparison: 03/31/2013, 03/01/2012, CT lung screening 01/10/2022. RESULT: Lines, tubes, and devices: None. Lungs and pleura: Mid and lower lung reticulonodular opacities. Cardiomediastinal silhouette: Stable. Other: No acute osseous or upper abdominal finding. IMPRESSION: Pulmonary opacities may represent bronchiolitis, as can be seen with atypical infection, asthma, aspi ration, and small airways disease. Reviewed, dictated and finalized at location K. IMPRESSION: Pulmonary opacities may represent bronchiolitis, as can be seen with atypical i nfection, asthma, aspiration, and small airways disease.
== END 2022-06-03 11:52 | disposition home or self-care (01) ==
LOC: CHSIMG 11:54
PROVIDERS: PCP Internal Medicine; Visit Provider Internal Medicine
DX: J18.8 Other pneumonia, unspecified organism (principal); R91.8 Other nonspecific abnormal finding of lung field
CPT/HCPCS: 71046

== ENCOUNTER 2022-07-22 07:45 | Outpatient (CLI) | payer MEDICARE, SELFPAY ==
--- NOTE | ~2022-07-22 | MM_ITS ---
EXAMINATION: MM screening [facility] BI w chris HISTORY: Screening mammogram TECHNIQUE: Craniocaudal and mediolateral oblique 3-D tomosynthesis images were obtained and synthetic 2-D images were generated. CAD analysis was submitted and interpreted. COMPARISON: 06/24/2021, 05/23/2020, 03/09/2019 bilateral screening mammogram examinations BREAST PARENCHYMAL COMPOSITION: There are scattered areas of fibroglandular density. FINDINGS: There is no evidence of suspicious mass, calcification, or architectural distortion to sugg est malignancy in either breast. There has been no suspicious interval change. IMPRESSION: 1. No mammographic evidence of malignancy. 2. Recommend routine screening mammography in one year. BI-RADS Category 1: Negative Reviewed, dictated and finalized at location A.
== END 2022-07-22 07:46 | disposition home or self-care (01) ==
LOC: CHSIMG 07:46
PROVIDERS: PCP Internal Medicine; Visit Provider Internal Medicine
DX: Z12.31 Encounter for screening mammogram for malignant neoplasm of breast (principal)
CPT/HCPCS: 77063; 77067

== ENCOUNTER 2023-01-07 07:36 | Outpatient (CLI) | payer MEDICARE, SELFPAY ==
[2023-01-07 07:48] LABS: Hematocrit 42.9 % (35.0-42.0); Hemoglobin 14.1 g/dL (11.7-13.8); Mean Corpuscular HGB Conc 32.9 g/dL (32.0-36.0); Mean Corpuscular Hemoglobin 30.4 pg (27.0-31.0); Mean Corpuscular Volume 92.5 fL (78.0-102.0); Mean Platelet Volume 9.9 fl (9.2-11.8); Platelet Count Result 253 K/mm3 (150-420); Red Blood Count 4.64 M/mm3 (4.20-5.40); Red Cell Distribution Width 14.3 % (11.6-14.4); White Blood Count 4.1 K/mm3 (4.8-10.8)
[2023-01-07 07:49] LABS: Appearance Urine Clear (Clear); Bilirubin Urine Negative (Negative); Blood Urine 1+ (Negative); Color Urine Light Yellow (Yellow); Glucose Urine UA Negative (Negative); Ketones Urine Negative (Negative); Leukocyte Esterase Ur Negative LEU/UL (Negative); Nitrate Urine Negative (Negative); Protein Urine Negative (Negative); Urobilinogen Urine 0.2 mg/dL (0.2-1.0); pH Urine 6.5 (5.0-8.0)
[2023-01-07 08:01] LABS: Add Urine Microscopic? YES; Bacteria Urine Trace /hpf; Squamous Epithelial Cell Urine Occasional /hpf (Few); WBC Urine None seen /hpf (0-3)
[2023-01-07 08:08] LABS: Band Neutrophils Percent 0 % (0-6); Basophils Percent Manual 0 % (0-1); Eosinophils Absolute Manual 0.04 K/mm3 (0.02-0.5); Eosinophils Percent Manual 1 % (1-6); Lymphocytes Absolute Manual 2.13 K/mm3 (1.1-4.5); Lymphocytes Percent Manual 52 % (18-44); Metamyelocytes Percent 0 %; Monocytes Absolute Manual 0.28 K/mm3 (0.1-0.90); Monocytes Percent Manual 7 % (3-9); Myelocytes Percent 0 %; Neutrophils Absolute Manual 1.64 K/mm3 (1.7-7.2); Neutrophils Percent Manual 40 % (46-73); Platelet Estimate Adequate (Adequate); Total Cells Counted 100
[2023-01-07 08:35] LABS: Alanine Aminotransferase 23 U/L (14-59); Albumin Level 3.7 g/dL (3.4-5.0); Alkaline Phosphatase 90 U/L (46-116); Anion Gap 5 mmol/L (8-16); Aspartate Amino Transferase 15 U/L (15-37); Bilirubin,Total 0.5 mg/dL (0.00-1.00); Blood Urea Nitrogen 14 mg/dL (7-18); Calcium 9.2 mg/dL (8.5-10.1); Carbon Dioxide 32 mmol/L (21-32); Chloride 103 mmol/L (98-108); Cholesterol 239 mg/dL (0-200); Estimated Glomerular Filt Rate > 60; Glucose 98 mg/dL (70-99); HDL Direct 74 mg/dL (40-60); LDL Cholesterol Calculated 152 mg/dL (<130); Osmolality Calculated 290 mOsm/kg (285-295); Potassium 4.7 mmol/L (3.5-5.1); Sodium 140 mmol/L (136-145); Total Protein 6.6 g/dL (6.4-8.2); Triglycerides 67 mg/dL (0-150)
== END 2023-01-07 07:37 | disposition home or self-care (01) ==
LOC: CHSLAB 07:38
PROVIDERS: PCP Internal Medicine; Visit Provider Internal Medicine
DX: E78.5 Hyperlipidemia, unspecified (principal); R53.83 Other fatigue
CPT/HCPCS: 36415; 80053; 80061; 81001; 84443; 85025

== ENCOUNTER 2023-01-23 08:19 | Outpatient (CLI) | payer MEDICARE, SELFPAY ==
--- NOTE | ~2023-01-23 | CT_ITS ---
CT Scan of the Chest without Contrast: Clinical Indication: Lung cancer screening, personal history of nicotine dependence Technique: Contiguous sections were acquired throughout the chest without intravenous contrast. Dose reduction technique was used on this scan by utilizing automated exposure control and iterative recon struction technique. The dose-length product (DLP) was 65.58 mGy-cm. COMPARISON: 01/10/2022 Findings: There is no evidence of any significant mediastinal, hilar or axillary lymphadenopathy. Coronary cici ry calcifications are present. There is no evidence of pleural or pericardial effusion. There are probable minimal tree-in-bud opacities in the lower lobes, similar to prior exam. Images through the upper abdomen reveal no abnormalities. Impression: Lung RADS 2: Benign appearance. 12 follow-up screening CT advised. Suspected minimal tree-in-bud opacities in the lower lobes, which could indicate small airways infect ion. Reviewed, dictated and finalized at [facility]. PER Impression: Lung RADS 2: Benign appearance. 12 follow-up screening CT advised. Suspected minimal tree-in-bud opacities in the lower lobes, which could indicat e small airways infection.
== END 2023-01-23 08:20 | disposition home or self-care (01) ==
LOC: CHSIMG 08:20
PROVIDERS: PCP Internal Medicine; Visit Provider Internal Medicine
DX: Z12.2 Encounter for screening for malignant neoplasm of respiratory organs (principal); Z87.891 Personal history of nicotine dependence
CPT/HCPCS: 71271

== ENCOUNTER 2023-08-17 12:14 | Outpatient (CLI) | payer MEDICARE, SELFPAY ==
--- NOTE | ~2023-08-17 | MM_ITS ---
EXAMINATION: MM screening [facility] BI w chris HISTORY: Screening TECHNIQUE: Craniocaudal and mediolateral oblique 3-D tomosynthesis images were obtained and synthetic 2-D images were generated. CAD analysis was submitted and interpreted. COMPARISON: Comparison to multiple prior studies sequentially, with oldest reviewed study dated 11/10. BREAST PARENCHYMAL COMPOSITION: Not dense: There are scattered areas of fibroglandular density. FINDINGS: There is no evidence of suspicious mass, calcification, or architectural distortion to sugg est malignancy in either breast. There has been no suspicious interval change. IMPRESSION: 1. No mammographic evidence of malignancy. 2. Recommend routine screening mammography in one year. BI-RADS Category 1: Negative Reviewed, dictated and finalized at location B.
== END 2023-08-17 12:15 | disposition home or self-care (01) ==
LOC: CHSIMG 12:16
PROVIDERS: PCP Internal Medicine; Visit Provider Internal Medicine
DX: Z12.31 Encounter for screening mammogram for malignant neoplasm of breast (principal)
CPT/HCPCS: 77063; 77067

== ENCOUNTER 2023-10-16 07:48 | Outpatient (CLI) | payer MEDICARE, SELFPAY ==
[2023-10-16 14:51] LABS: Alanine Aminotransferase 12 U/L (6-35); Albumin Level 3.7 g/dL (3.5-5.1); Alkaline Phosphatase 100 U/L (38-126); Anion Gap 7 mmol/L (4-12); Aspartate Amino Transferase 23 U/L (14-36); Bilirubin,Total 0.3 mg/dL (0.2-1.3); Blood Urea Nitrogen 14 mg/dL (7-17); Calcium 9.3 mg/dL (8.4-10.2); Carbon Dioxide 28 mmol/L (22-30); Chloride 103 mmol/L (98-107); Cholesterol 165 mg/dL (0-200); Estimated Glomerular Filt Rate > 60; Glucose 89 mg/dL (65-110); HDL Direct 56 mg/dL; LDL Cholesterol Calculated 97 mg/dL (<130); Osmolality Calculated 285 mOsm/kg (285-295); Potassium 4.3 mmol/L (3.4-5.0); Sodium 138 mmol/L (137-145); Triglycerides 58 mg/dL (<150)
== END 2023-10-16 07:49 | disposition home or self-care (01) ==
LOC: CHSLAB 07:51
PROVIDERS: PCP Internal Medicine; Visit Provider Internal Medicine
DX: E78.5 Hyperlipidemia, unspecified (principal)
CPT/HCPCS: 36415; 80053; 80061; 84443

== ENCOUNTER 2023-10-29 08:57 | Outpatient (CLI) | payer MEDICARE, SELFPAY | END 2023-10-29 08:58 | disposition home or self-care (01) | LOC: CHSCARD 08:58 | PROVIDERS: PCP Internal Medicine; Visit Provider Internal Medicine | DX: J44.9 Chronic obstructive pulmonary disease, unspecified (principal); R94.2 Abnormal results of pulmonary function studies | CPT/HCPCS: 94060; 94726; 94729 ==

== ENCOUNTER 2024-01-25 08:12 | Outpatient (CLI) | payer MEDICARE, SELFPAY ==
--- NOTE | ~2024-01-25 | CT_ITS ---
CT Scan of the Chest without Contrast: Clinical Indication: Lung cancer screening, nicotine dependence Technique: Contiguous sections were acquired throughout the chest without intravenous contrast. Dose reduction technique was used on this scan by utilizing automated exposure control and iterative recon struction technique. The dose-length product (DLP) was 57.19 mGy-cm. COMPARISON: 01/23/2023 Findings: There is no evidence of any significant mediastinal, hilar or axillary lymphadenopathy. Extensive cor onary artery calcifications are present. There is no evidence of pleural or pericardial effusion. There are focal tree-in-bud type opacities in the right upper lobe inferiorly. There are additional m inimal tree-in-bud opacities in the right lower lobe. Images through the upper abdomen reveal no abnormalities. Impression: Lung RADS 2: Benign appearance. 12 month follow-up screening CT advised. Tree-in-bud opacities in the right upper and lower lobes suggest small airways infectious process. Reviewed, dictated and finalized at location . AVEMENT COUNSELOR Impression: Lung RADS 2: Benign appearance. 12 month follow-up screening CT advised. Tree-in-bud opacities in the right upper and lower lobes suggest small airways infectious process.
--- OUTSIDE RECORDS SUMMARY | 2024-01-31 04:59 | XMS_ITS | Encounter Summary ---
Author Organization [facility] Address [address] [place] [address]. [place], [place] [id number] [place] [address] Care Team Providers Care Control Systems Technician Name Role Phone Stephon Dunn MD Primary Care Provider [phone] Encounter Details Date Type Department Care Team (Latest Contact Info) Description 10/05/2023 Travel Social History Tobacco Use Types Packs/Day Years Used Date Smoking Tobacco: Every Day Cigarettes Smokeless Tobacco: Never Alcohol Use Standard Drinks/Week Comments Yes 0 (1 standard drink = 0.6 oz pur e alcohol) every once in awhile Comments Unknown Sex and Gender Information Value Date Recorded Sex Assigned at Not on file Legal Sex Female 6:32 PM CDT Gender Identity Not on file Sexual Orientation Not on file documented as of this encounter Plan of Treatment Not on file documented as of this encounter Visit Diagnoses Not on filedocumented in this encounter Care Teams Control Systems Technician Relationship Specialty Start Date End Date Stephon Dunn MD [address] [place] [id number] PCP - General INTERNAL MEDICINE 09/29/23 documented as of this encounter
--- OUTSIDE RECORDS SUMMARY | 2024-01-31 04:59 | XMS_ITS | Encounter Summary ---
Author Organization [facility] Address [address] [place] [address]. [place] [address] [place] [address] Care Team Providers Care Obstetrics Gyn Physician Name Role Phone Stephon Dunn MD Primary Care Provider [phone] Reason for Visit * Auth/Cert (Routine) Specialty Diagnoses / Procedures Referred By Conthiren t Referred To Contact Diagnoses H25.9 Procedures REMV CATARACT EXTRACAP,INSERT LENS EXTRACTION CATARACT LEFT EYE WITH LENS IMPLANT Referral ID Status Reason Start Date Expiration Date Visits Re quested Visits Authorized [id number] 1 1 Encounter Details Date Type Department Care Team (Late st Contact Info) Description 01/04/2024 8:30 AM OFFICE ASST - 01/04/2024 8:58 AM OFFICE ASST Surgery [place] [address] [place] [address] [place] [address] Joelle French MD [address] [place] [address] EXTRACTION CATARACT LEFT EYE WITH LENS IMPLANT Surgery Details Date/Time Status Location OR Service Patient Class Case Class Case Type Trauma Case? 01/04/2024 8:30 AM Posted [facility] OR OR 1 Ophthalmology Short Stay/Outpat ient Surgery No Panel 1 Procedure LRB Anes Op Region Wound Class Comments EXTRACTION CATARACT LEFT EYE WITH LENS IMPLANT Left Monitor Anesthesia Care Eye Clean Surgeon Surgeon Role Service Panel Joelle French MD Primary Ophthalmology 1 documented in this encounter Social History Tobacco Use Types Packs/Day Years Used Date Smoking Tobacco: Every Day Cigarettes Smokeless Tobacco: Never Alcohol Use Standard Drinks/Week Comments Yes 0 (1 standard drink = 0.6 oz pur e alcohol) every once in awhile Comments No Sex and Gender Information Value Date Recorded Sex Assigned at Not on file Legal Sex Female 6:32 PM CDT Gender Identity Not on file Sexual Orientation Not on file documented as of this encounter Last Filed Vital Signs Vital Sign Reading Time Taken Comments Blood Pressure 146/75 01/04/2024 8:40 AM OFFICE ASST Pulse 72 01/04/2024 8:40 AM OFFICE ASST Temperature 36.3 ??C (97.3 ??F) 01/04/2024 8:40 AM CS T Respiratory Rate 16 01/04/2024 8:40 AM OFFICE ASST Oxygen Saturation 100% 01/04/2024 8:40 AM OFFICE ASST Inhaled Oxygen Concentration - - Weight 54.4 kg (120 lb) 12/29/2023 2:10 PM OFFICE ASST Height 149.9 cm (4' 11 ) 12/29/2023 2:10 PM OFFICE ASST Body Mass Index 24.24 12/29/2023 2:10 PM OFFICE ASST documented in this encounter Discharge Instructions * Discharge Instructions* Tiffanie Boyer RN - 01/04/2024 8:31 AM OFFICE ASST Due to the sedation you received today, (for 24 hours) please do not: -Sign any legal documents or make any important decisions -Drink alcohol or take medication intended to make you sleep -Drive a car or operate any hazardous machinery CE ASST * Attachments The following attachments cannot be sent through Care Everywhere. * Cataract Removal Discharge Instructions (Estonian) * Moderate Sedation in Adults Discharge Instructions (Estonian) documented in this encounter Medications at Time of Discharge fluticasone propionate (FLONASE) 50 MCG/ACT nasal spray Ibuprofen (MOTRIN) 40 MG/ML suspension Take 5 mLs (200 mg total) by mouth. documented as of this encounter H&P Notes * Joelle French MD - 01/04/2024 7:52 AM CST HISTORY AND PHYSICAL INTERVAL NOTE: I have reviewed Caren Vega History & Physical which was performed within the past 30 days. After examining Caren Silvia, no change has occurred in the patient's condition since the H&P was completed. Informed Consent Discussion: Potential benefits, risks, and side effects of the patient's procedure/surgery; the likelihood of the patient achieving his or her goals; and any potential problems that might occur during recuperation were discussed with the patient/family/personal passenger service representative. Reasonable alternatives to the patient's proposed procedure/surgery including benefits, risks, and side effects related to the alternatives and the risks related to not receiving the proposed care were also discussed with the patient/family/personal passenger service representative. Questions were answered and the patient/family/personal passenger service representative verbalized understanding and desires to proceed. CE ASST Source Note - Scanned, [facility] - 01/04/2024 12:00 AM OFFICE ASST documented in this encounter OR Notes * Brief Op Note - Joelle French MD - 01/04/2024 8:52 AM CST Patient: Caren Vega [id number] Preoperative Diagnosis: Visually significant cataract Postoperative Diagnosis: Visually significant cataract Procedure: Cataract Extraction with Intraocular Lens Placement, LEFT Eye Surgeon: Joelle French MD Lead Mechanical Engineer: none Anesthesia: Monitor Anesthesia Care Implant: Implant Name Type Inv. Item Serial No. Gill Box Operator Lot No. LRB No. Used [employer] [id number] [place] [facility] [id number] Left 1 Implanted Specimen: none Estimated Blood Loss: minimal Procedure in detail: Please see full operative note for details. Disposition: Patient was taken to the recovery in stable condition. Joelle French MD 01/04/2024 8:52 AM CE ASST documented in this encounter Plan of Treatment Not on file documented as of this encounter Procedures Procedure Name Priority Date/Time Associated Diagnosis Comments REMV CATARACT EXTRACAP,INSERT LENS 01/04/2024 8:13 AM OFFICE ASST H25.9 documented in this encounter Visit Diagnoses Not on filedocumented in this encounter Administered Medications Inactive Administered Medications - up to 3 most recent administrations Medication Order MAR Action Action Date Dose Rate Site acetaZOLAMIDE ER (DIAMOX) 12 hr capsule 500 mg 500 mg, Oral, Once, 1 dose, On 01/04/24 at 0900, Swallow capsule whole or it may be opened and the contents sprinkled on applesauce., Post-Op Given 01/04/2024 8:52 AM OFFICE ASST 500 mg acetaZOLAMIDE ER (DIAMOX) 500 MG 12 hr capsule 1 dose, Starting on Thu01/04/24 at 0851, Until Thu01/04/24 at 0852, Created by cabinet override Swallow capsule whole or it may be opened and the contents sprinkled on applesauce. lidocaine (PF) (XYLOCAINE) 1 % injection As needed, Starting on Thu01/04/24 at 0828, Until Thu01/04/24 at 0840, Intra-Op Given 01/04/2024 8:28 AM OFFICE ASST 1 mL Left Eye moxifloxacin (VIGAMOX) 0.5 % ophthalmic solution 1 drop 1 drop, Left Eye, Every 10 min, 2 doses, First dose on Thu01/04/24 at 0745, Last dose on Thu01/04/24 at 0755, Instill in operative eye, Pre-Op Given 01/04/2024 7:58 AM OFFICE ASST 1 drop Given 01/04/2024 7:48 AM OFFICE ASST 1 drop moxifloxacin (VIGAMOX) 0.5 % ophthalmic solution 1 dose, Starting on Thu01/04/24 at 0738, Until Thu01/04/24 at 0748, Created by cabinet override phenylephrine (MYDFRIN) 2.5 % ophthalmic solution 1 drop 1 drop, Left Eye, Every 10 min, 2 doses, First dose on Thu01/04/24 at 0745, Last dose on Thu01/04/24 at 0755, Instill in operative eye, Pre-Op Given 01/04/2024 7:58 AM OFFICE ASST 1 drop Given 01/04/2024 7:48 AM OFFICE ASST 1 drop phenylephrine (MYDFRIN) 2.5 % ophthalmic solution 1 dose, Starting on Thu01/04/24 at 0738, Until Thu01/04/24 at 0748, Created by cabinet override proparacaine (ALCAINE) 0.5 % ophthalmic solution 1 drop 1 drop, Left Eye, Every 10 min, 2 doses, First dose on Thu01/04/24 at 0745, Last dose on Thu01/04/24 at 0755, In operative eye, Pre-Op Given 01/04/2024 7:58 AM OFFICE ASST 1 drop Given 01/04/2024 7:48 AM OFFICE ASST 1 drop proparacaine (ALCAINE) 0.5 % ophthalmic solution 1 dose, Starting on Thu01/04/24 at 0738, Until Thu01/04/24 at 0758, Created by cabinet override tetracaine 0.5 % ophthalmic solution As needed, Starting on Thu01/04/24 at 0825, Until Thu01/04/24 at 0840, Intra-Op Given 01/04/2024 8:25 AM OFFICE ASST 2 drops Operative Site tropicamide (MYDRIACYL) 1 % ophthalmic solution 1 drop 1 drop, Left Eye, Every 10 min, 2 doses, First dose on Thu01/04/24 at 0745, Last dose on Thu01/04/24 at 0755, Instill in operative eye, Pre-Op Given 01/04/2024 7:58 AM OFFICE ASST 1 drop Given 01/04/2024 7:48 AM OFFICE ASST 1 drop tropicamide (MYDRIACYL) 1 % ophthalmic solution 1 dose, Starting on Thu01/04/24 at 0738, Until Thu01/04/24 at 0758, Created by cabinet override documented in this encounter Active and Recently Administered Medications Times are shown in OFFICE ASST. Scheduled Medication Order 01/02/2024 01/03/2024 01/04/2024 acetaZOLAMIDE ER (DIAMOX) 12 hr capsule 500 mg (COMPLETED) 500 mg, Oral, Once, 1 dose, On Thu01/04/24 at 0900, Swallow capsule whole or it may be opened and the contents sprinkled on applesauce., Post-Op 0852 (Given - Provid er: Tiffanie Boyer RN) moxifloxacin (VIGAMOX) 0.5 % ophthalmic solution 1 drop (COMPLETED) 1 drop, Left Eye, Every 10 min, 2 doses, First dose on Thu01/04/24 at 0745, Last dose on Thu01/04/24 at 0755, Instill in operative eye, Pre-Op 0748 (Given - Provid er: Abigail Blackburn RN)0758 (Given - Provider: Abigail Blackburn RN) phenylephrine (MYDFRIN) 2.5 % ophthalmic solution 1 drop (COMPLETED) 1 drop, Left Eye, Every 10 min, 2 doses, First dose on Thu01/04/24 at 0745, Last dose on Thu01/04/24 at 0755, Instill in operative eye, Pre-Op 0748 (Given - Provid er: Abigail Blackburn RN)0758 (Given - Provider: Abigail Blackburn RN) proparacaine (ALCAINE) 0.5 % ophthalmic solution 1 drop (COMPLETED) 1 drop, Left Eye, Every 10 min, 2 doses, First dose on Thu01/04/24 at 0745, Last dose on Thu01/04/24 at 0755, In operative eye, Pre-Op 0748 (Given - Provid er: Abigail Blackburn RN)0758 (Given - Provider: Abigail Blackburn RN) tropicamide (MYDRIACYL) 1 % ophthalmic solution 1 drop (COMPLETED) 1 drop, Left Eye, Every 10 min, 2 doses, First dose on Thu01/04/24 at 0745, Last dose on Thu01/04/24 at 0755, Instill in operative eye, Pre-Op 0748 (Given - Provid er: Abigail Blackburn RN)075 (Given - Provider: Abigail Blackburn RN) PRN Medication Order 01/02/2024 01/03/2024 01/04/2024 lidocaine (PF) (XYLOCAINE) 1 % injection (CANCELED) As needed, Starting on Thu01/04/24 at 0828, Until Thu01/04/24 at 0840, Intra-Op 0828 (Given - Provid er: Yennifer Perkins RN) tetracaine 0.5 % ophthalmic solution (CANCELED) As needed, Starting on Thu01/04/24 at 0825, Until Thu01/04/24 at 0840, Intra-Op 0825 (Given - Provid er: Yennifer Perkins RN) documented in this encounter Care Teams Obstetrics Gyn Physician Relationship Specialty Start Date End Date Stephon Dunn MD [address] [place] [address] PCP - General INTERNAL MEDICINE 09/29/23 documented as of this encounter
--- OUTSIDE RECORDS SUMMARY | 2024-01-31 04:59 | XMS_ITS | Encounter Summary ---
Author Organization [facility] Address [address] [place] [address]. [place], [place] [address] [place] [address] Care Team Providers Care Fabric Designer Name Role Phone Unavailable Primary Care Provider Unavailabl e Encounter Details Date Type Department Care Team (Late st Contact Info) Description 10/17/2009 Abstract [facility] CONVERSION [address] [place] [address] , Generic Conversion, Social History Tobacco Use Types Packs/Day Years Used Date Smoking Tobacco: Never Assessed Comments Unknown Sex and Gender Information Value Date Recorded Sex Assigned at Not on file Legal Sex Female 6:32 PM CDT Gender Identity Not on file Sexual Orientation Not on file documented as of this encounter Plan of Treatment Not on file documented as of this encounter Visit Diagnoses Not on filedocumented in this encounter
--- OUTSIDE RECORDS SUMMARY | 2024-01-31 04:59 | XMS_ITS | Encounter Summary ---
Author Organization [facility] Address [address] [place] [address]. [place] [address] [place] [address] Care Team Providers Care Fiber Optic Central Office Installer Name Role Phone Stephon Dunn MD Primary Care Provider [phone] Reason for Visit * Auth/Cert (Routine) Specialty Diagnoses / Procedures Referred By Sudhakar t Referred To Contact Diagnoses Unspecified age-related cataract h25.9 Procedures REMV CATARACT EXTRACAP,INSERT LENS Extraction cataract RIGHT eye with lens implant Referral ID Status Reason Start Date Expiration Date Visits Re quested Visits Authorized [id number] 1 1 Encounter Details Date Type Department Care Team (Late st Contact Info) Description 10/05/2023 10:54 AM CDT Anesthesia Event [place] [address] [place] [address] Miles Manzanares, LABVIEW PROGRAMMER [address] [place] [address] Anesthesia Record Procedure Summary Procedure Name Responsible Anesthesiologist Anesthesia Start Time Anesthesia Stop Time Extraction cataract RIGHT eye with lens implant (Right: Eye) 10/05/23 1054 10/05/23 1112 Events Date Time Event Comment 10/05/2023 1041 AN LABVIEW PROGRAMMER Prepped 1041 AN Anesthesia Prepped 1048 1054 An Start Patient ID and consent checked and patient reassessed. 1054 An Start Data 1054 Nasal Cannula Applied 1054 AN Immediate Reassess The pa tient was reevaluated immediately before sedation or regional anesthesia. 1057 Anesthesia Ready 1110 an stop data 1112 Post Anesthetic Care Handoff I completed my handoff to the receiving nurse during which we: 1. Identified the patient 2. Identified the responsible provider 3. Reviewed the pertinent medical history 4. Discussed the surgical course 5. Reviewed intra-op anesthesia management and issues during anesthesia 6. Set expectations for post-procedure period 7. Allowed opportunity for questions and acknowledgement of understanding. 1112 An Stop Meds Name Total midazolam 2 mg/2 mL injection 2 mg ketamine 50 mg/mL injection 15 mg lactated ringers infusion 200 mL * Agents Name O2 Ancillary O2 * Blood No blood administrations on file. Lines, Drains, and Airways Type Details Placement Removal Surgical/Incision 10/05/23; 1046; Surgical Wound; Eye; Right; Plastic shield and paper tape applied to operative eye following procedure.; 10/05/23; 1355 10/05/23 1046 by Chloe Conteh RN 10/05/23 1355 by Automatic Discharge Provider Peripheral IV Placement Date: 10/05/23; Placement Time: 1050; Placed Outside of This Facility?: No; Size: 22 G; Orientation: Right; Location: Forearm; Site Prep: Chlorhexidine; Inserted By: HERRERA Aquino; Insertion attempts: 2 (Bucky Will x 1); Ultrasound-guided Placement?: No; Patient Tolerance: Tolerated well; Removal Date: 10/05/23; Removal Time: 1125; Removal Reason: Patient Discharged 10/05/23 1050 by Nicolette Alba RN 10/05/23 1125 by Laura Quan RN documented in this encounter Social History Tobacco [...] on file documented as of this encounter OR Notes * Anesthesia Postprocedure Evaluation - Miles Manzanares CRNA - 10/05/2023 11:21 AM CDT Anesthesia Post-op Note Carenkate Vega Procedure(s): Extraction cataract RIGHT eye with lens implant (Right: Eye) Anesthesia type: MAC Vitals: 10/05/23 1114 BP: (!) 169/80 Vitals: 10/05/23 1114 Pulse: 81 Vitals: 10/05/23 1114 Resp: 16 Vitals: 10/05/23 1114 Temp: 36.2 ??C Vitals: 10/05/23 1114 SpO2: 98% Patient Location: Phase II/Outpatient Level of Consciousness: alert and awake Pain Management: adequate analgesia Airway Patency: patent Respiratory Status: acceptable Cardiovascular Status: acceptable Post-Op Nausea: none Postoperative Hydration: euvolemic There were no known notable events for this encounter. * Anesthesia Preprocedure Evaluation - Miles Manzanares CRNA - 10/01/2023 8:52 AM CDT Anesthesia ROS/MED History Reviewed: Patient summary , Medications , Labs Pre-Anesthetic State: awake, alert and responds appropriately Pulmonary (+) COPD Cardiovascular Neuro/Psych Substance Use GI/Hepatic/Renal Endo/Other NPO Status: Physical Evaluation Airway Mallampati: II TM Distance: >3 FB Dental Pulmonary Pulmonary exam normal Cardiovascular Cardiovascular exam normal STOP-Bang Assessment: Anesthesia Plan ASA 2 Intravenous Induction Anesthesia type: MAC Informed Consent Anesthetic plan and risks discussed with patient of whom. . documented in this encounter Plan of Treatment Not on file documented as of this encounter Visit Diagnoses Not on filedocumented in this encounter Administered Medications Inactive Administered Medications - up to 3 most recent administrations Medication Order MAR Action Action Date Dose Rate Site ketamine (KETALAR) injection Intravenous, PRN, Starting on Thu10/05/23 at 1058, Until Thu10/05/23 at 1112, Anesthesia Intra-Op Given 10/05/2023 10:58 AM CDT 15 mg lactated ringers infusion at 10 mL/hr, Intravenous, Continuous, Starting on Thu10/05/23 at 1030, Until Thu10/05/23 at 1400, Infuse at TKO rate, Pre-Op Restarted 10/05/2023 11:03 AM CDT Continued by Anesthesia 10/05/2023 10:54 AM CDT 10 mL/hr New Bag 10/05/2023 10:50 AM CDT 10 mL/hr midazolam (VERSED) injection Intravenous, PRN, Starting on Thu10/05/23 at 1055, Until Thu10/05/23 at 1112, Anesthesia Intra-Op Given 10/05/2023 10:55 AM CDT 2 mg documented in this encounter Care Teams Fiber Optic Central Office Installer Relationship Specialty Start Date End Date Stephon Dunn MD [address] [place] [address] PCP - General INTERNAL MEDICINE 09/29/23 documented as of this encounter
--- OUTSIDE RECORDS SUMMARY | 2024-01-31 04:59 | XMS_ITS | Encounter Summary ---
Author Organization [facility] Address [address] [place] [address]. [place] [address] [place] [address] Care Team Providers Care Manager Market Research Name Role Phone Stephon Dunn MD Primary Care Provider [phone] Reason for Visit * Auth/Cert (Routine) Specialty Diagnoses / Procedures Referred By Conthiren t Referred To Contact Diagnoses Unspecified age-related cataract h25.9 Procedures REMV CATARACT EXTRACAP,INSERT LENS Extraction cataract RIGHT eye with lens implant Referral ID Status Reason Start Date Expiration Date Visits Re quested Visits Authorized [id number] 1 1 Encounter Details Date Type Department Care Team (Latest Contact Info) Description 10/05/2023 9:28 AM CDT - 10/05/2023 11:35 AM CDT Hospital Encounter [facility] [address] [place] [address] Joelle French MD [address] [place], [place] [id number] Discharge Disposition: Home or Self Care (Routine Discharge) Social History Tobacco Use Types Packs/Day Years Used Date Smoking Tobacco: Every Day Cigarettes Smokeless Tobacco: Never Tobacco Cessation:Ready to Q uit: Not Asked; Counseling Given: Not Answered Alcohol Use Standard Drinks/Week Comments Yes 0 [...] Sign Reading Time Taken Comments Blood Pressure 169/80 10/05/2023 11:14 AM CDT Pulse 81 10/05/2023 11:14 AM CDT Temperature 36.2 ??C (97.1 ??F) 10/05/2023 11:14 AM C DT Respiratory Rate 16 10/05/2023 11:14 AM CDT Oxygen Saturation 98% 10/05/2023 11:14 AM CDT Inhaled Oxygen Concentration - - Weight 54.4 kg (120 lb) 10/05/2023 10:12 AM CDT Height 149.9 cm (4' 11 ) 10/05/2023 10:12 AM CDT Body Mass Index 24.24 10/05/2023 10:12 AM CDT documented in this encounter Discharge Instructions * Discharge Instructions* Laura Quan RN - 10/05/2023 11:18 AM CDT Due to the sedation you received today, (for 24 hours) please do not: -Sign any legal documents or make any important decisions -Drink alcohol or take medication intended to make you sleep -Drive a car or operate any hazardous machinery * Attachments The following attachments cannot be sent through Care Everywhere. * Cataract Removal Discharge Instructions (Polish) * Moderate Sedation in Adults Discharge Instructions (Polish) documented in this encounter Medications at Time of Discharge fluticasone propionate (FLONASE) 50 MCG/ACT nasal spray Ibuprofen (MOTRIN) 40 MG/ML suspension Take 5 mLs (200 mg total) by mouth. documented as of this encounter H&P Notes * Joelle French MD - 10/05/2023 10:39 AM CDT HISTORY AND PHYSICAL INTERVAL NOTE: I have reviewed Caren Craneracheljustyn History & Physical which was performed within [...] during recuperation were discussed with the patient/family/personal automotive sales representative. Reasonable alternatives to the patient's proposed procedure/surgery including benefits, risks, and side effects related to the alternatives and the risks related to not receiving the proposed care were also discussed with the patient/family/personal automotive sales representative. Questions were answered and the patient/family/personal automotive sales representative verbalized understanding and desires to proceed. Source Note - Scanned, [facility] - 10/05/2023 12:00 AM CDT documented in this encounter OR Notes * Brief Op Note - Joelle French MD - 10/05/2023 11:38 AM CDT Patient: Caren Vega [id number] Preoperative Diagnosis: Visually significant cataract Postoperative Diagnosis: Visually significant cataract Procedure: Cataract Extraction with Intraocular Lens Placement, RIGHT Eye Surgeon: Joelle French MD Service Or Work Dispatcher Chief: none Anesthesia: Monitor Anesthesia Care Implant: Implant Name Type Inv. Item Serial No. Vice President Of Consulting Services Lot No. LRB No. Used [employer] Simplicity IOL [id number] [employer] [facility] [id number] Right 1 Implanted Specimen: none Estimated Blood Loss: minimal Procedure in detail: Please see full operative note for details. Disposition: Patient was taken to the recovery in stable condition. Joelle French MD 10/05/2023 11:38 AM documented in this encounter Plan of Treatment Not on file documented as of this encounter Procedures Procedure Name Priority Date/Time Associated Diagnosis Comments REMV CATARACT EXTRACAP,INSERT LENS 10/05/2023 10:49 AM CDT h25.9 documented in this encounter Visit Diagnoses Not on filedocumented in this encounter Administered Medications Inactive Administered Medications - up to 3 most recent administrations Medication Order MAR Action Action Date Dose Rate Site acetaZOLAMIDE ER (DIAMOX) 12 hr capsule 500 mg 500 mg, Oral, Once, 1 dose, On Thu10/05/23 at 1130, POST OP Swallow capsule whole or it may be opened and the contents sprinkled on applesauce. Given 10/05/2023 11:19 AM CDT 500 mg acetaZOLAMIDE ER (DIAMOX) 500 MG 12 hr capsule 1 dose, Starting on Thu10/05/23 at 1105, Until Thu10/05/23 at 1119, Created by cabinet override Swallow capsule whole or it may be opened and the contents sprinkled on applesauce. diphenhydrAMINE (BENADRYL) injection 12.5 mg 12.5 mg, Intravenous, Once as needed, Nausea, Vomiting, 1 dose, Starting on Thu10/05/23 at 1100, Until Thu10/05/23 at 1400, For IV administration, give no faster than 25 mg/min. If more than one antiemetic is ordered, use in this order: ondansetron, diphenhydramine, metoclopramide, haloperidol, promethazine. If nausea / vomiting still not controlled, move to next ordered medication., PACU lactated ringers infusion at 10 mL/hr, Intravenous, Continuous, Starting on Thu10/05/23 at 1030, Until Thu10/05/23 at 1400, Infuse at TKO rate, Pre-Op Restarted 10/05/2023 11:03 AM CDT Continued by Anesthesia 10/05/2023 10:54 AM CDT 10 mL/hr New Bag 10/05/2023 10:50 AM CDT 10 mL/hr metoclopramide (REGLAN) injection 10 mg 10 mg, Intravenous, Once as needed, Nausea, Vomiting, 1 dose, Starting on Thu10/05/23 at 1100, Until Thu10/05/23 at 1400, Administer slowly over 3-4 minutes. Do not administer to bowel surgery patients. If more than one antiemetic is ordered, use in this order: ondansetron, diphenhydramine, metoclopramide, haloperidol, promethazine. If nausea / vomiting still not controlled, move to next ordered medication., PACU moxifloxacin (VIGAMOX) 0.5 % ophthalmic solution 1 drop 1 drop, Right Eye, Every 10 min, 2 doses, First dose on Thu10/05/23 at 1030, Last dose on Thu10/05/23 at 1040, Instill in operative eye, Pre-Op Given 10/05/2023 10:41 AM CDT 1 drop Given 10/05/2023 10:31 AM CDT 1 drop moxifloxacin (VIGAMOX) 0.5 % ophthalmic solution 1 dose, Starting on Thu10/05/23 at 1004, Until Thu10/05/23 at 1031, Created by cabinet override ondansetron (ZOFRAN) injection 4 mg 4 mg, Intravenous, Once as needed, Nausea, Vomiting, 1 dose, Starting on Thu10/05/23 at 1100, Until Thu10/05/23 at 1400, Administer slowly over 3-4 minutes. If more than one antiemetic is ordered, use in this order: ondansetron, diphenhydramine, metoclopramide, haloperidol, promethazine. If nausea / vomiting still not controlled, move to next ordered medication., PACU phenylephrine (MYDFRIN) 2.5 % ophthalmic solution 1 drop 1 drop, Right Eye, Every 10 min, 2 doses, First dose on Thu10/05/23 at 1030, Last dose on Thu10/05/23 at 1040, Instill in operative eye, Pre-Op Given 10/05/2023 10:41 AM CDT 1 drop Given 10/05/2023 10:31 AM CDT 1 drop phenylephrine (MYDFRIN) 2.5 % ophthalmic solution 1 dose, Starting on Thu10/05/23 at 1004, Until Thu10/05/23 at 1031, Created by cabinet override phenylephrine (SULLY-SYNEPHRINE) 10 % ophthalmic solution 1 drop 1 drop, Right Eye, Once as needed, Irritation, until dilated, 1 dose, Starting on Thu10/05/23 at 1000, Until Thu10/05/23 at 1400, Pre-Op proparacaine (ALCAINE) 0.5 % ophthalmic solution 1 drop 1 drop, Right Eye, Every 10 min, 2 doses, First dose on Thu10/05/23 at 1030, Last dose on Thu10/05/23 at 1040, In operative eye, Pre-Op Given 10/05/2023 10:41 AM CDT 1 drop Given 10/05/2023 10:31 AM CDT 1 drop proparacaine (ALCAINE) 0.5 % ophthalmic solution 1 dose, Starting on Thu10/05/23 at 1004, Until Thu10/05/23 at 1031, Created by cabinet override tropicamide (MYDRIACYL) 1 % ophthalmic solution 1 drop 1 drop, Right Eye, Every 10 min, 2 doses, First dose on Thu10/05/23 at 1030, Last dose on Thu10/05/23 at 1040, Instill in operative eye, Pre-Op Given 10/05/2023 10:41 AM CDT 1 drop Given 10/05/2023 10:31 AM CDT 1 drop tropicamide (MYDRIACYL) 1 % ophthalmic solution 1 dose, Starting on Thu10/05/23 at 1004, Until Thu10/05/23 at 1031, Created by cabinet override documented in this encounter Active and Recently Administered Medications Times are shown in CDT. Scheduled Medication Order 10/03/2023 10/04/2023 10/05/2023 acetaZOLAMIDE ER (DIAMOX) 12 hr capsule 500 mg (COMPLETED) 500 mg, Oral, Once, 1 dose, On Thu10/05/23 at 1130, POST OP Swallow capsule whole or it may be opened and the contents sprinkled on applesauce. 1119 (Given - Provid er: Laura Quan RN) moxifloxacin (VIGAMOX) 0.5 % ophthalmic solution 1 drop (COMPLETED) 1 drop, Right Eye, Every 10 min, 2 doses, First dose on Thu10/05/23 at 1030, Last dose on Thu10/05/23 at 1040, Instill in operative eye, Pre-Op 103 (Given - Provid er: Nicolette Nguyen RN)104 (Given - Provider: Nicolette Nguyen RN) phenylephrine (MYDFRIN) 2.5 % ophthalmic solution 1 drop (COMPLETED) 1 drop, Right Eye, Every 10 min, 2 doses, First dose on Thu10/05/23 at 1030, Last dose on Thu10/05/23 at 1040, Instill in operative eye, Pre-Op 103 (Given - Provid er: Nicolette Nguyen RN)1041 (Given - Provider: Nicolette Nguyen, RN) proparacaine (ALCAINE) 0.5 % ophthalmic solution 1 drop (COMPLETED) 1 drop, Right Eye, Every 10 min, 2 doses, First dose on Thu10/05/23 at 1030, Last dose on Thu10/05/23 at 1040, In operative eye, Pre-Op 103 (Given - Provid er: Nicolette Nguyen RN)1041 (Given - Provider: Nicolette Nguyen RN) tetracaine 0.5 % ophthalmic solution 2 drop 2 drop, Right Eye, Once, 1 dose, On Thu10/05/23 at 1030, Instill in operative eye before going back to OR, Pre-Op 1030 (Canceled Entry - Provider: Automatic Discharge Provider - Comment: Automatically canceled at discontinue of medication order) tropicamide (MYDRIACYL) 1 % ophthalmic solution 1 drop (COMPLETED) 1 drop, Right Eye, Every 10 min, 2 doses, First dose on Thu10/05/23 at 1030, Last dose on Thu10/05/23 at 1040, Instill in operative eye, Pre-Op 1031 (Given - Provid er: Nicolette Nguyen RN)1041 (Given - Provider: Nicolette Nguyen RN) Continuous Medication Order 10/03/2023 10/04/2023 10/05/2023 lactated ringers infusion at 10 mL/hr, Intravenous, Continuous, Starting on Thu10/05/23 at 1030, Until Thu10/05/23 at 1400, Infuse at TKO rate, Pre-Op 1050 (New Bag - Prov ider: Nicolette Nguyen RN)1054 (Continued by Anesthesia - Provider: Valentina Webb CRNA)1102 (Paused - Provider: Valentina Webb CRNA - Comment: Switch to gravity)1103 (Restarted - Provider: Valentina Webb CRNA)1124 (Infusion Stop Time - Provider: Laura Quan RN) PRN Medication Order 10/03/2023 10/04/2023 10/05/2023 diphenhydrAMINE (BENADRYL) injection 12.5 mg 12.5 mg, Intravenous, Once as needed, Nausea, Vomiting, 1 dose, Starting on Thu10/05/23 at 1100, Until Thu10/05/23 at 1400, For IV administration, give no faster than 25 mg/min. If more than one antiemetic is ordered, use in this order: ondansetron, diphenhydramine, metoclopramide, haloperidol, promethazine. If nausea / vomiting still not controlled, move to next ordered medication., PACU lidocaine (PF) (XYLOCAINE) 1 % injection (CANCELED) As needed, Starting on Thu10/05/23 at 1059, Until Thu10/05/23 at 1115, Intra-Op 1059 (Given - Provid er: Joelle French MD) metoclopramide (REGLAN) injection 10 mg 10 mg, Intravenous, Once as needed, Nausea, Vomiting, 1 dose, Starting on Thu10/05/23 at 1100, Until Thu10/05/23 at 1400, Administer slowly over 3-4 minutes. Do not administer to bowel surgery patients. If more than one antiemetic is ordered, use in this order: ondansetron, diphenhydramine, metoclopramide, haloperidol, promethazine. If nausea / vomiting still not controlled, move to next ordered medication., PACU ondansetron (ZOFRAN) injection 4 mg 4 mg, Intravenous, Once as needed, Nausea, Vomiting, 1 dose, Starting on Thu10/05/23 at 1100, Until Thu10/05/23 at 1400, Administer slowly over 3-4 minutes. If more than one antiemetic is ordered, use in this order: ondansetron, diphenhydramine, metoclopramide, haloperidol, promethazine. If nausea / vomiting still not controlled, move to next ordered medication., PACU phenylephrine (SULLY-SYNEPHRINE) 10 % ophthalmic solution 1 drop 1 drop, Right Eye, Once as needed, Irritation, until dilated, 1 dose, Starting on Thu10/05/23 at 1000, Until Thu10/05/23 at 1400, Pre-Op tetracaine 0.5 % ophthalmic solution (CANCELED) As needed, Starting on Thu10/05/23 at 1054, Until Thu10/05/23 at 1115, Intra-Op 1054 (Given - Provid er: Irina Gates RN) documented in this encounter Care Teams Manager Market Research Relationship Specialty Start Date End Date Stephon Dunn MD [address] [place] [address] PCP - General INTERNAL MEDICINE 09/29/23 documented as of this encounter
--- OUTSIDE RECORDS SUMMARY | 2024-01-31 04:59 | XMS_ITS | Encounter Summary ---
Author Organization [facility] Address [address] [place] [address]. [place] [address] [place] [address] Care Team Providers Care Veterinary Pharmacologist Name Role Phone Stephon Dunn MD Primary Care Provider [phone] Reason for Visit * Auth/Cert (Routine) Specialty Diagnoses / Procedures Referred By Sudhakar tse Referred To Contact Diagnoses H25.9 Procedures REMV CATARACT EXTRACAP,INSERT LENS EXTRACTION CATARACT LEFT EYE WITH LENS IMPLANT Referral ID Status Reason Start Date Expiration Date Visits Re quested Visits Authorized [id number] 1 1 Encounter Details Date Type Department Care Team (Late st Contact Info) Description 01/04/2024 8:18 AM SERVICE OPERATIONS MANAGER Anesthesia Event [facility] [address] [place] [address] Miles Manzanares, [employer] TECHNICIAN [address] [place] [address] Anesthesia Record Procedure Summary Procedure Name Responsible Anesthesiologist Anesthesia Start Time Anesthesia Stop Time EXTRACTION CATARACT LEFT EYE WITH LENS IMPLANT (Left: Eye) 01/04/24 0818 01/04/24 0839 Events Date Time Event Comment 01/04/2024 0813 0818 An Start Patient ID and consent checked and patient reassessed. 0818 An Start Data 0818 Nasal Cannula Applied 0818 AN Immediate Reassess The pa tient was reevaluated immediately before sedation or regional anesthesia. 0818 Anesthesia Ready 0835 an stop data 0839 Post Anesthetic Care Handoff I completed my handoff to the receiving nurse during which we: 1. Identified the patient 2. Identified the responsible provider 3. Reviewed the pertinent medical history 4. Discussed the surgical course 5. Reviewed intra-op anesthesia management and issues during anesthesia 6. Set expectations for post-procedure period 7. Allowed opportunity for questions and acknowledgement of understanding. 0839 An Stop Meds Name Total ketamine 50 mg/mL injection 15 mg midazolam 2 mg/2 mL injection 2 mg * Agents Name O2 Ancillary O2 * Blood No blood administrations on file. Lines, Drains, and Airways Type Details Placement Removal Peripheral IV Placement Date: 01/04/24; Placement Time: 800; Placed Outside of This Facility?: No; Size: 20 G; Orientation: Right; Location: Antecubital; Site Prep: Chlorhexidine; Insertion attempts: 1; Ultrasound-guided Placement?: No; Patient Tolerance: Tolerated well; Removal Date: 01/04/24; Removal Time: 854; Removal Reason: Patient Discharged 01/04/24 0801 by Abigail Blackburn RN 01/04/24 0855 by Tiffanie Boyer RN Surgical/Incision 01/04/24; 08; Surgical Wound; Eye; Left; Clear plastic eye shield secured with paper tape; 01/04/24; 1107 01/04/24 0829 by Yennifer Perkins RN 01/04/24 1107 by Automatic Discharge Provider documented in this encounter Social History Tobacco [...] Postprocedure Evaluation - Miles Manzanares CRNA - 01/04/2024 9:01 AM CST Anesthesia Post-op Note Caren Vega Procedure(s): EXTRACTION CATARACT LEFT EYE WITH LENS IMPLANT (Left: Eye) Anesthesia type: MAC Vitals: 01/04/24 0840 BP: (!) 146/75 Vitals: 01/04/24 0840 Pulse: 72 Vitals: 01/04/24 0840 Resp: 16 Vitals: 01/04/24 0840 Temp: 36.3 ??C Vitals: 01/04/24 0840 SpO2: 100% Patient Location: Phase II/Outpatient Level of Consciousness: alert and awake Pain Management: adequate analgesia Airway Patency: patent Respiratory Status: acceptable Cardiovascular Status: acceptable Post-Op Nausea: none Postoperative Hydration: euvolemic There were no known notable events for this encounter. ICE OPERATIONS MANAGER * Anesthesia Preprocedure Evaluation - Miles Manzanares CRNA - 12/29/2023 7:32 AM CST Anesthesia ROS/MED History Reviewed: Patient summary , Medications , Labs Pre-Anesthetic State: awake, alert and responds appropriately Pulmonary (+) COPD Cardiovascular Neuro/Psych Substance Use (+) smoker GI/Hepatic/Renal Endo/Other GENERAL COMMENTS Uneventful CE with IOL in 10/02 NPO Status: Physical Evaluation Airway Mallampati: II TM Distance: >3 FB Dental Pulmonary Pulmonary exam normal Cardiovascular Cardiovascular exam normal STOP-Bang Assessment: Do you snore loudly?: (Patient-Rptd) 0 Do you often feel tired or fatigued after your sleep?: (Patient-Rptd) 0 Has anyone ever observed you stop breathing in your sleep?: (Patient-Rptd) 0 Do you have or are you being treated for high blood pressure?: (Patient-Rptd) 0 Recent BMI (Calculated): (Patient-Rptd) 24.2 Is BMI greater than 35 kg/m2?: (Patient-Rptd) 0=No Age older than 50 years old?: (Patient-Rptd) 1=Yes Is your neck circumference greater than 17 inches (Male) or 16 inches (Female)?: (Patient-Rptd) 0 Gender - Male: (Patient-Rptd) 0=No STOP-Bang Total Score: (Patient-Rptd) 1 Anesthesia Plan ASA 2 Intravenous Induction Anesthesia type: MAC Informed Consent Anesthetic plan and risks discussed with patient of whom. . ICE OPERATIONS MANAGER ICE OPERATIONS MANAGER documented in this encounter Plan of Treatment Not on file documented as of this encounter Visit Diagnoses Not on filedocumented in this encounter Administered Medications Inactive Administered Medications - up to 3 most recent administrations Medication Order MAR Action Action Date Dose Rate Site ketamine (KETALAR) injection Intravenous, PRN, Starting on Thu01/04/24 at 0820, Until Thu01/04/24 at 0839, Anesthesia Intra-Op Given 01/04/2024 8:20 AM SERVICE OPERATIONS MANAGER 15 mg midazolam (VERSED) injection Intravenous, PRN, Starting on Thu01/04/24 at 0820, Until Thu01/04/24 at 0839, Anesthesia Intra-Op Given 01/04/2024 8:20 AM SERVICE OPERATIONS MANAGER 2 mg documented in this encounter Care Teams Veterinary Pharmacologist Relationship Specialty Start Date End Date Stephon Dunn MD [address] [place] [address] PCP - General INTERNAL MEDICINE 09/29/23 documented as of this encounter
--- OUTSIDE RECORDS SUMMARY | 2024-01-31 04:59 | XMS_ITS | Encounter Summary ---
Author Organization [facility] Address [address] [place] [address]. [place], [place] [id number] [place] [address] Care Team Providers Care Automobile Travel Club Counselor Name Role Phone Stephon Dunn MD Primary Care Provider [phone] Encounter Details Date Type Department Care Team (Latest Contact Info) Description 10/02/2023 Travel Social History Tobacco Use Types Packs/Day [...] on filedocumented in this encounter Care Teams Automobile Travel Club Counselor Relationship Specialty Start Date End Date Stephon Dunn MD [address] [place] [id number] PCP - General INTERNAL MEDICINE 09/29/23 documented as of this encounter
--- OUTSIDE RECORDS SUMMARY | 2024-01-31 04:59 | XMS_ITS | Encounter Summary ---
Author Organization [facility] System Address [address] [place] [address]. [place] [address] [place] [address] Care Team Providers Care Principal Account Clerk Name Role Phone Stephon Dunn MD Primary Care Provider [phone] Reason for Visit * Auth/Cert (Routine) Specialty Diagnoses / Procedures Referred By Contac t Referred To Contact Diagnoses Unspecified age-related cataract h25.9 Procedures REMV CATARACT EXTRACAP,INSERT LENS Extraction cataract RIGHT eye with lens implant Referral ID Status Reason Start Date Expiration Date Visits Re quested Visits Authorized [id number] 1 1 Encounter Details Date Type Department Care Team (Late st Contact Info) Description 10/05/2023 11:00 AM CDT - 10/05/2023 11:33 AM CDT [facility] [place] [address] [address] Joelle French MD [address] [place] [address] Extraction cataract RIGHT eye with lens implant Surgery Details Date/Time Status Location OR Service Patient Class Case Class Case Type Trauma Case? 10/05/2023 11:00 AM Posted [facility] OR OR 1 Ophthalmology Short Stay/Outpat ient Surgery No Panel 1 Procedure LRB Anes Op Region Wound Class Comments Extraction cataract RIGHT eye with lens implant Right Monitor Anesthesia Care Eye Clean Surgeon Surgeon [...] Care Everywhere. * Cataract Removal Discharge Instructions (Burmese) * Moderate Sedation in Adults Discharge Instructions (Burmese) documented in this encounter Medications at Time [...] the past 30 days. After examining Caren Vega, no change has occurred in the patient's condition since the H&P was completed. Informed Consent Discussion: Potential benefits, risks, and side effects of the patient's procedure/surgery; the likelihood of the patient achieving his or her goals; and any potential problems that might occur during recuperation were discussed with the patient/family/personal professional healthcare representative. Reasonable alternatives to the patient's proposed procedure/surgery including benefits, risks, and side effects related to the alternatives and the risks related to not receiving the proposed care were also discussed with the patient/family/personal professional healthcare representative. Questions were answered and the patient/family/personal professional healthcare representative verbalized understanding and desires to proceed. Source Note - Scanned, [facility] - 10/05/2023 12:00 AM CDT documented in this encounter OR Notes * Brief Op Note - Joelle French MD - 10/05/2023 11:38 AM CDT Patient: Caren Vega 1950 [id number] Preoperative Diagnosis: Visually significant cataract Postoperative Diagnosis: Visually significant cataract Procedure: Cataract Extraction with Intraocular Lens Placement, RIGHT Eye Surgeon: Joelle French MD Program Advisor: none Anesthesia: Monitor Anesthesia Care Implant: Implant Name Type Inv. Item Serial No. Calculator Operator Lot No. LRB No. Used Action Technis Simplicity IOL [id number] [facility] [facility] [id number] Right 1 Implanted Specimen: none Estimated Blood [...] Bag 10/05/2023 10:50 AM CDT 10 mL/hr lidocaine (PF) (XYLOCAINE) 1 % injection As needed, Starting on Thu10/05/23 at 1059, Until Thu10/05/23 at 1115, Intra-Op Given 10/05/2023 10:59 AM CDT 2 mLs Righ t Eye metoclopramide (REGLAN) injection 10 mg 10 mg, [...] Thu10/05/23 at 1031, Created by cabinet override tetracaine 0.5 % ophthalmic solution As needed, Starting on Thu10/05/23 at 1054, Until Thu10/05/23 at 1115, Intra-Op Given 10/05/2023 10:54 AM CDT 2 drops tropicamide (MYDRIACYL) 1 % ophthalmic solution 1 [...] RN)1041 (Given - Provider: Nicolette Nguyen RN) phenylephrine (MYDFRIN) 2.5 % ophthalmic solution 1 drop (COMPLETED) 1 drop, Right Eye, Every 10 min, 2 doses, First dose on Thu10/05/23 at 1030, Last dose on Thu10/05/23 at 1040, Instill in operative eye, Pre-Op 1031 (Given - Provid er: Nicolette Nguyen RN)1041 (Given - Provider: Nicolette Nguyen RN) proparacaine (ALCAINE) 0.5 % ophthalmic solution 1 drop (COMPLETED) 1 drop, Right Eye, Every 10 min, 2 doses, First dose on Thu10/05/23 at 1030, Last dose on Thu10/05/23 at 1040, In operative eye, Pre-Op 103 (Given - Provid er: Nicolette Nguyen RN)104 (Given - Provider: Nicolette Nguyen RN) tetracaine [...] RN) documented in this encounter Care Teams Principal Account Clerk Relationship Specialty Start Date End Date Stephon Dunn MD [address] [place] [address] PCP - General INTERNAL MEDICINE 09/29/23 documented as of this encounter
--- OUTSIDE RECORDS SUMMARY | 2024-01-31 04:59 | XMS_ITS | Encounter Summary ---
Author Organization [facility] System Address [address] [place] [address]. [place], [place] [address] [place] [address] Care Team Providers Care Florist Supplies Salesperson Name Role Phone Stephon Dunn MD Primary Care Provider [phone] Encounter Details Date Type Department Care Team (Latest Contact Info) Description 01/04/2024 Travel Social History Tobacco Use Types Packs/Day [...] on filedocumented in this encounter Care Teams Florist Supplies Salesperson Relationship Specialty Start Date End Date Stephon Dunn MD [address] [place] [place] [id number] PCP - General INTERNAL MEDICINE 09/29/23 documented as of this encounter
--- OUTSIDE RECORDS SUMMARY | 2024-01-31 04:59 | XMS_ITS | Encounter Summary ---
Author Organization [facility] Address [address] [place] [address]. [place] [address] [place] [address] Care Team Providers Care Silk Trimmer Name Role Phone Stephon Dunn MD Primary Care Provider [phone] Reason for Visit * Auth/Cert (Routine) Specialty Diagnoses / Procedures Referred By Sudhakar t Referred To Contact Diagnoses H25.9 Procedures REMV CATARACT EXTRACAP,INSERT LENS EXTRACTION CATARACT LEFT EYE WITH LENS IMPLANT Referral ID Status Reason Start Date Expiration Date Visits Re quested Visits Authorized [id number] 1 1 Encounter Details Date Type Department Care Team (Latest Contact Info) Description 01/04/2024 7:23 AM GAMING CASHIER - 01/04/2024 9:07 AM [facility] Hospital En[facility] [place] [address] Joelle French MD [address] [place] [address] Discharge Disposition: Home or Self Care (Routine [...] Comments Blood Pressure 146/75 01/04/2024 8:40 AM GAMING CASHIER Pulse 72 01/04/2024 8:40 AM GAMING CASHIER Temperature 36.3 ??C (97.3 ??F) 01/04/2024 8:40 AM CS T Respiratory Rate 16 01/04/2024 8:40 AM GAMING CASHIER Oxygen Saturation 100% 01/04/2024 8:40 AM GAMING CASHIER Inhaled Oxygen Concentration - - Weight 54.4 kg (120 lb) 12/29/2023 2:10 PM GAMING CASHIER Height 149.9 cm (4' 11 ) 12/29/2023 2:10 PM GAMING CASHIER Body Mass Index 24.24 12/29/2023 2:10 PM GAMING CASHIER documented in this encounter Discharge Instructions * Discharge Instructions* Tiffanie Boyer RN - 01/04/2024 8:31 AM GAMING CASHIER Due to the sedation you received today, (for 24 hours) please do not: -Sign any legal documents or make any important decisions -Drink alcohol or take medication intended to make you sleep -Drive a car or operate any hazardous machinery NG CASHIER * Attachments The following attachments cannot be sent through Care Everywhere. * Cataract Removal Discharge Instructions (Jamaican) * Moderate Sedation in Adults Discharge Instructions (Jamaican) documented in this encounter Medications at Time [...] the past 30 days. After examining Caren Cranesridhar, no change has occurred in the patient's condition since the H&P was completed. Informed Consent Discussion: Potential benefits, risks, and side effects of the patient's procedure/surgery; the likelihood of the patient achieving his or her goals; and any potential problems that might occur during recuperation were discussed with the patient/family/personal manufacturers service representative. Reasonable alternatives to the patient's proposed procedure/surgery including benefits, risks, and side effects related to the alternatives and the risks related to not receiving the proposed care were also discussed with the patient/family/personal manufacturers service representative. Questions were answered and the patient/family/personal manufacturers service representative verbalized understanding and desires to proceed. NG CASHIER Source Note - Scanned[facility] - 01/04/2024 12:00 AM GAMING CASHIER documented in this encounter OR Notes * Brief Op Note - Joelle French MD - 01/04/2024 8:52 AM CST Patient: Carne Vega 1950 [id number] Preoperative Diagnosis: Visually significant cataract Postoperative Diagnosis: Visually significant cataract Procedure: Cataract Extraction with Intraocular Lens Placement, LEFT Eye Surgeon: Joelle French MD Integrated Pest Management Technician: none Anesthesia: Monitor Anesthesia Care Implant: Implant Name Type Inv. Item Serial No. Candle Wrapping Machine Operator Lot No. LRB No. Used Action [employer] Delivery System [id number] IMGuest CARE [id number] Left 1 Implanted Specimen: none Estimated Blood Loss: minimal Procedure in detail: Please see full operative note for details. Disposition: Patient was taken to the recovery in stable condition. Joelle French MD 01/04/2024 8:52 AM NG CASHIER documented in this encounter Plan of Treatment Not on file documented as of this encounter Procedures Procedure Name Priority Date/Time Associated Diagnosis Comments REMV CATARACT EXTRACAP,INSERT LENS 01/04/2024 8:13 AM GAMING CASHIER H25.9 documented in this encounter Visit Diagnoses [...] on applesauce., Post-Op Given 01/04/2024 8:52 AM GAMING CASHIER 500 mg acetaZOLAMIDE ER (DIAMOX) 500 MG 12 hr capsule 1 dose, Starting on Thu01/04/24 at 0851, Until Thu01/04/24 at 0852, Created by cabinet override Swallow capsule whole or it may be opened and the contents sprinkled on applesauce. moxifloxacin (VIGAMOX) 0.5 % ophthalmic solution 1 drop 1 drop, Left Eye, Every 10 min, 2 doses, First dose on Thu01/04/24 at 0745, Last dose on Thu01/04/24 at 0755, Instill in operative eye, Pre-Op Given 01/04/2024 7:58 AM GAMING CASHIER 1 drop Given 01/04/2024 7:48 AM GAMING CASHIER 1 drop moxifloxacin (VIGAMOX) 0.5 % ophthalmic solution 1 dose, Starting on Thu01/04/24 at 0738, Until Thu01/04/24 at 0748, Created by cabinet override phenylephrine (MYDFRIN) 2.5 % ophthalmic solution 1 drop 1 drop, Left Eye, Every 10 min, 2 doses, First dose on Thu01/04/24 at 0745, Last dose on Thu01/04/24 at 0755, Instill in operative eye, Pre-Op Given 01/04/2024 7:58 AM GAMING CASHIER 1 drop Given 01/04/2024 7:48 AM GAMING CASHIER 1 drop phenylephrine (MYDFRIN) 2.5 % ophthalmic solution 1 dose, Starting on Thu01/04/24 at 0738, Until Thu01/04/24 at 0748, Created by cabinet override proparacaine (ALCAINE) 0.5 % ophthalmic solution 1 drop 1 drop, Left Eye, Every 10 min, 2 doses, First dose on Thu01/04/24 at 0745, Last dose on Thu01/04/24 at 0755, In operative eye, Pre-Op Given 01/04/2024 7:58 AM GAMING CASHIER 1 drop Given 01/04/2024 7:48 AM GAMING CASHIER 1 drop proparacaine (ALCAINE) 0.5 % ophthalmic solution 1 dose, Starting on Thu01/04/24 at 0738, Until Thu01/04/24 at 0758, Created by cabinet override tropicamide (MYDRIACYL) 1 % ophthalmic solution 1 drop 1 drop, Left Eye, Every 10 min, 2 doses, First dose on Thu01/04/24 at 0745, Last dose on Thu01/04/24 at 0755, Instill in operative eye, Pre-Op Given 01/04/2024 7:58 AM GAMING CASHIER 1 drop Given 01/04/2024 7:48 AM GAMING CASHIER 1 drop tropicamide (MYDRIACYL) 1 % ophthalmic solution 1 dose, Starting on Thu01/04/24 at 0738, Until Thu01/04/24 at 0758, Created by cabinet evaristo documented in this encounter Active and Recently Administered Medications Times are shown in GAMING CASHIER. Scheduled Medication Order 01/02/2024 01/03/2024 01/04/2024 acetaZOLAMIDE [...] 0748 (Given - Provid er: Abigail Blackburn RN)757 (Given - Provider: Abigail Blackburn RN) phenylephrine (MYDFRIN) 2.5 % ophthalmic solution 1 drop (COMPLETED) 1 drop, Left Eye, Every 10 min, 2 doses, First dose on Thu01/04/24 at 0745, Last dose on Thu01/04/24 at 0755, Instill in operative eye, Pre-Op 0748 (Given - Provid er: Abigail Blackburn RN)075 (Given - Provider: Abigail Blackburn RN) proparacaine (ALCAINE) 0.5 % ophthalmic solution 1 drop (COMPLETED) 1 drop, Left Eye, Every 10 min, 2 doses, First dose on Thu01/04/24 at 0745, Last dose on Thu01/04/24 at 0755, In operative eye, Pre-Op 0748 (Given - Provid er: Abigail Blackburn RN)075 (Given - Provider: Abigail Blackburn RN) tropicamide (MYDRIACYL) 1 % ophthalmic solution 1 drop (COMPLETED) 1 drop, Left Eye, Every 10 min, 2 doses, First dose on Thu01/04/24 at 0745, Last dose on Thu01/04/24 at 0755, Instill in operative eye, Pre-Op 0748 (Given - Provid er: Abigail Blackburn RN)0758 (Given - Provider: Abigail Blackburn RN) PRN [...] RN) documented in this encounter Care Teams Silk Trimmer Relationship Specialty Start Date End Date Stephon Dunn MD [address] [place] [address] PCP - General INTERNAL MEDICINE 09/29/23 documented as of this encounter
--- OUTSIDE RECORDS SUMMARY | 2024-01-31 04:59 | XMS_ITS | Clinical Summary ---
Author Organization [facility] Address [address] [place] [address]. [place] [address] [place] [address] Care Team Providers Care Director Child Abuse Therapy Name Role Phone Stephon Dunn MD Primary Care Provider [phone] Allergies No known active allergies Medications Ibuprofen (MOTRIN) 40 MG/ML suspension Take 5 mLs (200 mg total) by mouth. Active fluticasone propionate (FLONASE) 50 MCG/ACT nasal spray Active Active Problems No known active problems Encounters Date Type Department Care Team Description 01/04/2024 8:30 AM DOOR PULLER - 01/04/2024 8:[address] [facility] [place] [address] Joelle French MD EXTRACTION CATARACT LEFT EYE WITH LENS IMPLANT 01/04/2024 8:18 AM DOOR PULLER Anesthesia Event [place] [address] Miles Manzanares CRNA 01/04/2024 7:23 AM DOOR PULLER - 01/04/2024 9:07 AM DOOR PULLER Hospital Encounter [place] [address] Joelle French MD Discharge Disposition: Home or Self Care (Routine Discharge) 01/04/2024 Travel from Last 3 Months Social History Tobacco Use Types Packs/Day Years [...] on file Sexual Orientation Not on file Last Filed Vital Signs Vital Sign Reading Time Taken Comments Blood Pressure 146/75 01/04/2024 8:40 AM DOOR PULLER Pulse 72 01/04/2024 8:40 AM DOOR PULLER Temperature 36.3 ??C (97.3 ??F) 01/04/2024 8:40 AM CS T Respiratory Rate 16 01/04/2024 8:40 AM DOOR PULLER Oxygen Saturation 100% 01/04/2024 8:40 AM DOOR PULLER Inhaled Oxygen Concentration - - Weight 54.4 kg (120 lb) 12/29/2023 2:10 PM DOOR PULLER Height 149.9 cm (4' 11 ) 12/29/2023 2:10 PM DOOR PULLER Body Mass Index 24.24 12/29/2023 2:10 PM DOOR PULLER Plan of Treatment Health Maintenance Due Date Last Done Comments Colorectal Cancer Screening Colonoscopy (10 Years) 1950 Hepatitis C 09/29/1969 Mammogram Screening 1991 Zoster Vaccines (2 of 3) 05/05/2012 03/10/2012 Annual Medicare Wellness Visit 09/29/2016 Dexa Scan (General) 09/29/2016 COVID-19 Vaccine ( season) 2023 10/31/2022, 12/10/2021, 05/08/2021, Additional history exists Influenza Adult (#1) 2023 12/04/2021, 11/23/2019, 12/15/2018, Additional history exists DTaP, Tdap and Td Vaccines (3 - Td or Tdap) 01/25/2032 01/24/2022, 11/12/2011 Pneumococcal Vaccine: 65+ Years Completed 08/29/2021, 01/19/2018, 01/14/2017, Additional history exists RSV Immunization or 60+ Years Completed 01/14/2023 Meningococcal Vaccine Aged Out No shalom rajni eligible based on patient's age to complete this topic RSV Immunizations Under 20 Months Aged Out No longer eligible based on patient's age to complete this topic Medical Devices Implanted Type Area Jig Inspector Device Identifier Shelf Expiration Date Model / Serial / Lot Technis Simplicity Iol Implanted:Qty: 1 on 10/05/2023 by Joelle French MD at [facility] Right: Eye [employer] 06/11/2026 DCB00 / [id number] / [employer] Delivery System Implanted:Qty: 1 on 01/04/2024 by Joelle French MD at [facility] Left: Eye [employer] [id number] 12/19/2025 DCB00 / [id number] / [id number] Procedures Procedure Name Priority Date/Time Associated Diagnosis Comments REMV CATARACT EXTRACAP,INSERT LENS 01/04/2024 8:13 AM DOOR PULLER H25.9 from Last 3 Months Insurance [facility] Care Teams Director Child Abuse Therapy Relationship Specialty Start Date End Date Stephon Dunn MD [address] [place] [address] PCP - General INTERNAL MEDICINE 09/29/23
--- OUTSIDE RECORDS SUMMARY | 2024-01-31 04:59 | XMS_ITS | Encounter Summary ---
Author Organization [facility] Address [address] [place] [address]. [place] [address] [place] [address] Care Team Providers Care Business Continuity Manager Name Role Phone Stephon Dunn MD Primary Care Provider [phone] Encounter Details Date Type Department Care Team (Late st Contact Info) Description 08/31/2023 Scan [facility] Information Services [facility] [place] [address] Scanned, [facility] Hospital Social History Tobacco Use Types Packs/Day Years [...] on filedocumented in this encounter Care Teams Business Continuity Manager Relationship Specialty Start Date End Date Stephon Dunn MD [address] [place] [address] PCP - General INTERNAL MEDICINE 09/29/23 documented as of this encounter
--- OUTSIDE RECORDS SUMMARY | 2024-01-31 05:00 | XMS_ITS | Continuity of Care Document ---
Author Organization [facility] Address [address] [place] [address] Phone Care Team Providers Care Taproom Attendant Name Role Phone Severiano Sanders DO Unavailable Unavailable Advance Directives Directive Yes / No Effective Date File Name No Information Encounters Encounter Description Practice Location Reason(s) For Visit Diagnoses Date Provider Providers Copied on Encounter [facility], [address], [place], [place], [id number], tel:[phone] [facility] No Information Marilyn Mcintosh. [address] [place], [address], [place]. tel:[phone] Family History Family Member Type Diagnosis Age At Onset No Information Payers Payer name Insurance type Covered democrat ID Authoriza tion(s) No Information Social History [...]
== END 2024-01-25 08:13 | disposition home or self-care (01) ==
LOC: CHSIMG 08:14
PROVIDERS: PCP Internal Medicine; Visit Provider Internal Medicine
DX: Z12.2 Encounter for screening for malignant neoplasm of respiratory organs (principal); Z87.891 Personal history of nicotine dependence; R91.8 Other nonspecific abnormal finding of lung field
CPT/HCPCS: 71271

== ENCOUNTER 2024-02-22 07:48 | Outpatient (CLI) | payer MEDICARE, SELFPAY ==
--- NOTE | 2024-02-22 07:54 | EST_ITS ---
Patient Info Name: Caren Vega Age: 73 years : 1950 Gender: Female Ht: 60 in Wt: 125 lbs BSA: 1.56 m2 HR: 64 bpm BP: 134 / 68 mmHg Heart Rhythm: Sinus Rhythm Technical Quality: Good Exam Date: 02/22/2024 9:01 AM Exam Location: Echo Lab Patient Status: Outpatient Admit Date: 02/22/2024 Staff Ordering Physician: Stephon Dunn MD Attending Provider: Stephon Dunn MD Exam Type: CA stress yenni w NM Study Info A regadenoson stress test was performed. History/Risk Factors High calcium channel score from CT scan. Summary 1. 1. Negative lexiscan stress test for ischemic ST changes by ECG criteria. 2. 2. Stable hemodynamics throughout the test. 3. 3. Nuclear scan to follow and will be reported separately. Please correlate with it. Protocol: LEXISCAN Stress ECG Details Stage: REST Duration (min): 11 min : 56 sec HR (bpm): 66 SBP (mmHg): 134 DBP (mmHg): 68 Stage: REST Duration (min): 16 min : 31 sec HR (bpm): 71 SBP (mmHg): 134 DBP (mmHg): 68 Stage: STAGE 1 Duration (min): 0 min : 24 sec HR (bpm): 64 SBP (mmHg): 134 DBP (mmHg): 68 Stage: RECOVERY Duration (min): 0 min : 35 sec HR (bpm): 86 SBP (mmHg): 134 DBP (mmHg): 68 Stage: RECOVERY Duration (min): 1 min : 35 sec HR (bpm): 98 SBP (mmHg): 134 DBP (mmHg): 68 Stage: RECOVERY Duration (min): 2 min : 35 sec HR (bpm): 96 SBP (mmHg): 133 DBP (mmHg): 68 Stage: RECOVERY Duration (min): 3 min : 35 sec HR (bpm): 95 SBP (mmHg): 133 DBP (mmHg): 68 Stage: RECOVERY Duration (min): 4 min : 35 sec HR (bpm): 93 SBP (mmHg): 135 DBP (mmHg): 68 Stage: RECOVERY Duration (min): 5 min : 35 sec HR (bpm): 87 SBP (mmHg): 140 DBP (mmHg): 65 Stage: RECOVERY Duration (min): 6 min : 35 sec HR (bpm): 86 SBP (mmHg): 134 DBP (mmHg): 64 Stage: RECOVERY Duration (min): 6 min : 48 sec HR (bpm): 85 SBP (mmHg): 134 DBP (mmHg): 64 Rest HR: 71 bpm Peak HR: 101 bpm Rest Sys BP: 134 mmHg Peak Sys BP: 140 mmHg Max Pred HR: 148 bpm % Max Pred HR: 68 % Target HR: 126 bpm Max RPP: 14,140 bpm*mmHg BP Response: Normal blood pressure response Termination Reason: Completed Protocol Cardiac Symptoms: None Total Time: 0 min : 24 sec Rest Wiley BP: 68 mmHg Peak Wiley BP: 65 mmHg Total Dose: 0.4 mg Resting ECG Normal sinus rhythm - normal ECG. Stress ECG No abnormal ST/T wave changes. Arrhythmias None. Report Signatures
--- NOTE | 2024-02-22 16:34 | WPDCARIOSTRE ---
Nuclear Stress Test INDICATIONS Indications: Dyspnea PROCEDURE Procedure Performed: Myocardial Perf Spect-Multi Procedure: Patient underwent a lexiscan stress test and immediately was injected with 31.6 mCi of cardiolyte. Multiple tomographic images were obtained. These are of good quality. There is evidence of moderate size, mild inferior perfusion defect with stress imaging. A separate resting images were obtained after patient was injected with 10.4 mCi of cardiolyte. Multiple tomographic images were obtained. These are of good quality. There is evidence of moderate size, mild inferior perfusion defect with rest imaging. CONCLUSION Conclusion: 1. Myocardial perfusion imaging demonstrating a fixed moderate size inferior perfusion defect suggestive of diaphragmatic attenuation artifact. 2. No evidence of reversible ischemia. 3. Left ventriculogram demonstrates a hyperdynamic left ventricular function with ejection fraction of 80% with no wall motion abnormalities. The LV is small at EDV 29 ml. 4. TID score 1.04 is normal.
== END 2024-02-22 07:49 | disposition home or self-care (01) ==
LOC: CHSCARD 07:50
PROVIDERS: PCP Internal Medicine; Visit Provider Internal Medicine
DX: R06.09 Other forms of dyspnea (principal); R91.8 Other nonspecific abnormal finding of lung field
CPT/HCPCS: 78452; 93017; A9502; J2785

== ENCOUNTER 2024-08-03 12:31 | Outpatient (CLI) | payer MEDICARE, SELFPAY ==
--- NOTE | 2024-08-04 11:17 | P.PCNPFT_ITS ---
PFT Procedure Performed PFT Procedure Performed Spirometry with Pre/Post Bronchodilator Plethysmography (Lung Vol) Diffusing Cap (DLCO) Flow Vol Loop PFT Interpretation This is a pulmonary function test with pre and post-bronchodilator spirometry, plethysmography and diffusing capacity. The test was performed and results interpreted in accordance with the 2019 and 2005 ATS/ERS Task Force guidelines respectively using the Global Lung Function Initiative-2012 reference equations. Patient demonstrated good effort and cooperation. Reproducibility criteria were met. The quality of the pre bronchodilator spirometry maneuver was Grade A and post bronchodilator spirometry maneuver was Grade A. Findings: Spirometry: There is decreased maximal expiratory airflow at all lung volumes with a concave expiratory flow tracing. The contour the inspiratory flow tracing is normal. The pre bronchodilator FVC is 2.28 L, 98% predicted. The pre bronchodilator FEV1 is 1.05 L, 58% predicted. The pre bronchodilator FEV1: FVC ratio is 46%. The post bronchodilator FVC is 2.39 L, representing a 5% increase. The post bronchodilator FEV1 is 1.25 L, representing an 18% increase. The post bronchodilator FEV1: FVC ratio is 52%. Plethysmography: The total lung capacity is 4.08 L, 95% predicted. The functi onal residual capacity is 2.01 L, 82% predicted. The residual volume is 1.80 L, 91% predicted. Diffusing capacity: The diffusing capacity unadjusted for hemoglobin and carboxyhemoglobin is 11.4, 63% predicted. Diffusing capacity adjusted for alveolar volume is 3.71, 83% predicted. Impression: There is a moderately severe obstructive abnormality. There is significant improvement after inhaling a single dose of albuterol. The lung volumes are normal. The diffusing capacity unadjusted for hemoglobin and carboxyhemoglobin is mildly decreased and normalizes when adjusted for alveolar volume. There are no prior studies for comparison
== END 2024-08-03 12:32 | disposition home or self-care (01) ==
PROVIDERS: PCP Internal Medicine; Visit Provider Physician Assistant
DX: J44.9 Chronic obstructive pulmonary disease, unspecified (principal)
CPT/HCPCS: 94060; 94726; 94729

== ENCOUNTER 2024-08-17 09:15 | Outpatient (CLI) | payer MEDICARE, SELFPAY ==
--- NOTE | ~2024-08-17 | MM_ITS ---
EXAMINATION: MM screening brandee BI w chris HISTORY: Screening TECHNIQUE: Craniocaudal and mediolateral oblique 3-D tomosynthesis images were obtained and synthetic 2-D images were generated. CAD analysis was submitted and interpreted. COMPARISON: Comparison to multiple prior studies sequentially, with oldest reviewed study dated 02/22. BREAST PARENCHYMAL COMPOSITION: Not dense: There are scattered areas of fibroglandular density. FINDINGS: There is no evidence of suspicious mass, calcification, or architectural distortion to sugg est malignancy in either breast. There has been no suspicious interval change. IMPRESSION: 1. No mammographic evidence of malignancy. 2. Recommend routine screening mammography in one year. BI-RADS Category 1: Negative Reviewed, dictated and finalized at location A.
--- OUTSIDE RECORDS SUMMARY | 2024-08-17 09:23 | XMS_ITS | Continuity of Care Document ---
Author Organization [facility] Address [address] [place] [address] Phone Care Team Providers Care Credit Product Analyst Name Role Phone Severiano Sanders DO Unavailable Unavailable Advance Directives Directive Yes / No Effective Date File Name No Information Encounters Encounter Description Practice Location Reason(s) For Visit Diagnoses Date Provider Providers Copied on Encounter [facility], [address], [place], [place], [id number], [place] tel:[phone] [facility] No Information Marilyn Mcintosh. [address] [place], [address], [place]. tel:[phone] Family History Family Member Type Diagnosis Age At Onset No Information Payers Payer name Insurance type Covered constitution party ID Authoriza tion(s) No Information Social History [...]
--- OUTSIDE RECORDS SUMMARY | 2024-08-17 09:23 | XMS_ITS | Clinical Summary ---
Author Organization [facility] Address [facility] [place] [address] Care Team Providers Care Care Program Resident Name Role Phone Stephon Dunn MD Primary Care Provider [phone] Allergies No known active allergies Medications Ibuprofen (MOTRIN) 40 MG/ML suspension Take 5 mLs (200 mg total) by mouth. Active fluticasone propionate (FLONASE) 50 MCG/ACT nasal spray Active Active Problems No known active problems Social History Tobacco Use Types Packs/Day Years [...] Comments Blood Pressure 146/75 01/04/2024 8:40 AM RADIUS GRINDER Pulse 72 01/04/2024 8:40 AM RADIUS GRINDER Temperature 36.3 C (97.3 F) 01/04/2024 8:40 AM RADIUS GRINDER Respiratory Rate 16 01/04/2024 8:40 AM RADIUS GRINDER Oxygen Saturation 100% 01/04/2024 8:40 AM RADIUS GRINDER Inhaled Oxygen Concentration - - Weight 54.4 kg (120 lb) 12/29/2023 2:10 PM RADIUS GRINDER Height 149.9 cm (4' 11) 12/29/2023 2:10 PM RADIUS GRINDER Body Mass Index 24.24 12/29/2023 2:10 PM RADIUS GRINDER Plan of Treatment Health Maintenance Due Date Last Done Comments Colorectal Cancer Screening Colonoscopy (10 Years) 1950 Hepatitis C 09/29/1969 Mammogram Screening 1991 Zoster Vaccines (2 of 3) 05/05/2012 03/10/2012 Annual Medicare Wellness Visit 09/29/2016 Dexa Scan (General) 09/29/2016 COVID-19 Vaccine ( season) 2023 10/31/2022, 12/10/2021, 05/08/2021, Additional history exists DTaP, Tdap and Td Vaccines (3 - Td or Tdap) 01/25/2032 01/24/2022, 11/12/2011 Pneumococcal Vaccine: 50+ Years Completed 08/29/2021, 01/19/2018, 01/14/2017, Additional history exists RSV Immunization or 60+ Years Completed 01/14/2023 Meningococcal B Vaccine Aged Out No l onger eligible based on patient's age to complete this topic Meningococcal Vaccine Aged Out No shalom rjani eligible based on patient's age to complete this topic RSV Immunizations Under 20 Months Aged Out No longer eligible based on patient's age to complete this topic Medical Devices Implanted Type Area Project Safety Manager Device Identifier Shelf Expiration Date Model / Serial / Lot Technis Simplicity Iol Implanted:Qty: 1 on 10/05/2023 by Joelle French MD at [facility] Right: Eye [employer] 06/11/2026 DCB00 / [id number] / Tecnis Delivery System Implanted:Qty: 1 on 01/04/2024 by Joelle French MD at [facility] Left: Eye [employer] [id number] 12/19/2025 DCB00 / [id number] / [id number] Insurance [facility] Care Teams Care Program Resident Relationship Specialty Start Date End Date Stephon Dunn MD [address] [place] [address] PCP - General INTERNAL MEDICINE 09/29/23
== END 2024-08-17 09:16 | disposition home or self-care (01) ==
LOC: CHSIMG 09:15
PROVIDERS: PCP Internal Medicine; Visit Provider Internal Medicine
DX: Z12.31 Encounter for screening mammogram for malignant neoplasm of breast (principal)
CPT/HCPCS: 77063; 77067

== ENCOUNTER 2024-11-02 07:44 | Outpatient (CLI) | payer MEDICARE, SELFPAY ==
--- OUTSIDE RECORDS SUMMARY | 2001-11-29 09:00 | XMS_ITS | Continuity of Care Document ---
Author Organization [facility] Address [address] [place] [address] Phone Care Team Providers Care Direct Mail Coordinator Name Role Phone Severiano Sanders DO Unavailable Unavailable Advance Directives Directive Yes / No Effective Date File Name No Information Encounters Encounter Description Practice Location Reason(s) For Visit Diagnoses Date Provider Providers Copied on Encounter [facility], [address], [place], [place], [id number], [place] tel:[phone] [facility] No Information Marilyn Mcintosh. [address] [place], [address], [place]. tel:[phone] Family History Family Member Type Diagnosis Age At Onset No Information Payers Payer name Insurance type Covered libertarian ID Authoriza tion(s) No Information Social History Type Description Quantity Date Captured Comments Sex Female Smoking Status No Information Chief Complaint And Reason For Visit No Information Reason For Referral Reason For Referral No Information History Of Present Illness Encounter Date Complaint History Of Prese nt Illness No Information Functional Status Date Functional Assessmen t No Information Instructions Date Instruction Additional Infor mation No Information Assessments Type Assessment Date No Information Patient Care Teams Name Effective Dates (start - stop) Status Members No Information
--- OUTSIDE RECORDS SUMMARY | 2024-11-02 07:57 | XMS_ITS | Clinical Summary ---
Author Organization [facility] Address [facility] [place] [address] Care Team Providers Care Area Coordinator Name Role Phone Stephon Dunn MD Primary Care Provider [phone] Allergies No known active allergies Medications Ibuprofen [...] Comments Blood Pressure 146/75 01/04/2024 8:40 AM CLINICAL RESEARCH ASSISTANT Pulse 72 01/04/2024 8:40 AM CLINICAL RESEARCH ASSISTANT Temperature 36.3 C (97.3 F) 01/04/2024 8:40 AM CLINICAL RESEARCH ASSISTANT Respiratory Rate 16 01/04/2024 8:40 AM CLINICAL RESEARCH ASSISTANT Oxygen Saturation 100% 01/04/2024 8:40 AM CLINICAL RESEARCH ASSISTANT Inhaled Oxygen Concentration - - Weight 54.4 kg (120 lb) 12/29/2023 2:10 PM CLINICAL RESEARCH ASSISTANT Height 149.9 cm (4' 11) 12/29/2023 2:10 PM CLINICAL RESEARCH ASSISTANT Body Mass Index 24.24 12/29/2023 2:10 PM CLINICAL RESEARCH ASSISTANT Plan of Treatment Health Maintenance Due Date Last Done Comments Colorectal Cancer Screening Colonoscopy (10 Years) 1950 Hepatitis C 09/29/1969 Mammogram Screening 1991 Zoster Vaccines (2 of 3) 05/05/2012 03/10/2012 Annual Medicare Wellness Visit 09/29/2016 Dexa Scan (General) 09/29/2016 COVID-19 Vaccine ( season) 2024 10/31/2022, 12/10/2021, 05/08/2021, Additional history exists DTaP, Tdap and Td Vaccines (3 - Td or Tdap) 01/25/2032 01/24/2022, 11/12/2011 Pneumococcal Vaccine: 50+ Years Completed 08/29/2021, 01/19/2018, 01/14/2017, Additional history exists RSV Immunization or 60+ Years Completed 01/14/2023 Meningococcal B Vaccine Aged Out No l onger eligible based on patient's age to complete this topic Meningococcal Vaccine Aged Out No shalom rajni eligible based on patient's age to complete this topic RSV Immunizations Under 20 Months Aged Out No longer eligible based on patient's age to complete this topic Medical Devices Implanted Type Area Water Systems Engineer Device Identifier Shelf Expiration Date Model / Serial / Lot Technis Simplicity Iol Implanted:Qty: 1 on 10/05/2023 by Joelle French MD at [facility] Right: Eye [employer] 06/11/2026 DCB00 / [id number] / Tecnis Delivery System Implanted:Qty: 1 on 01/04/2024 by Joelle French MD at [facility] Left: Eye [employer] [id number] 12/19/2025 DCB00 / [id number] / [id number] Insurance [facility] Care Teams Area Coordinator Relationship Specialty Start Date End Date Stephon Dunn MD [address] [place] [address] PCP - General INTERNAL MEDICINE 09/29/23
[2024-11-02 07:59] LABS: Hematocrit 42.9 % (35.0-42.0); Hemoglobin 14.0 g/dL (11.7-13.8); Mean Corpuscular HGB Conc 32.6 g/dL (32-36); Mean Corpuscular Hemoglobin 28.9 pg (27.0-31.0); Mean Corpuscular Volume 88.5 fL (78.0-102.0); Platelet Count Result 237 K/mm3 (150-420); Red Blood Count 4.85 M/mm3 (4.20-5.40); White Blood Count 4.1 K/mm3 (4.8-10.8)
[2024-11-02 08:00] LABS: Add Urine Microscopic? YES; Appearance Urine Clear (Clear); Glucose Urine UA Negative (Negative); Leukocyte Esterase Ur Negative LEU/UL (Negative); Nitrate Urine Negative (Negative); Specific Grav Ur 1.010 (1.010-1.020)
[2024-11-02 08:26] LABS: Alanine Aminotransferase 13 U/L (6-35); Albumin Level 4.2 g/dL (3.5-5.1); Alkaline Phosphatase 82 U/L (38-126); Anion Gap 8 mmol/L (4-12); Aspartate Amino Transferase 24 U/L (14-36); Bilirubin,Total 0.6 mg/dL (0.2-1.3); Blood Urea Nitrogen 12 mg/dL (7-17); Calcium 9.8 mg/dL (8.4-10.2); Carbon Dioxide 30 mmol/L (22-30); Chloride 104 mmol/L (98-107); Cholesterol 202 mg/dL (0-200); Estimated Glomerular Filt Rate > 60; Glucose 89 mg/dL (65-110); HDL Direct 59 mg/dL; Osmolality Calculated 292 mOsm/kg (285-295); Potassium 4.6 mmol/L (3.4-5.0); Sodium 142 mmol/L (137-145); Total Protein 7.4 g/dL (6.3-8.2); Triglycerides 122 mg/dL (<150)
[2024-11-02 08:58] LABS: Thyroid Stimulating Hormone 2.990 uIU/mL (0.465-4.680)
== END 2024-11-02 07:45 | disposition home or self-care (01) ==
LOC: CHSLAB 07:47
PROVIDERS: PCP Internal Medicine; Visit Provider Internal Medicine
DX: E78.5 Hyperlipidemia, unspecified (principal); R03.0 Elevated blood-pressure reading, without diagnosis of hypertension; J44.9 Chronic obstructive pulmonary disease, unspecified
CPT/HCPCS: 36415; 80053; 80061; 81001; 84443; 85027

== ENCOUNTER 2024-12-26 11:50 | Outpatient (CLI) | payer MEDICARE, SELFPAY ==
--- NOTE | ~2024-12-26 | DEXA_ITS ---
Bone Density Report Name: EMELY MIRANDA Age: 74 Sex: Female Ethnicity: White Date of : 1950 Indication: postmenopausal; screening for osteoporosis; hysterectomy; Referring Provider: Stephon Dunn Study: Bone densitometry was performed. Exam Date: December 26, 2024 Accession number: [id number] Bone Density: Region BMD T-score Z-score Classification AP Spine(L1-L4) 1.039 -0.1 2.2 Normal Femoral Neck (Left) 0.773 -0.7 1.3 Normal Total Hip (Left) 0.918 -0.2 1.5 Normal Femoral Neck (Right) 0.758 -0.8 1.2 Normal Total Hip (Right) 0.911 -0.3 1.4 Normal Femoral Neck Mean 0.765 -0.8 1.2 Normal Total Hip Mean 0.914 -0.2 1.5 Normal World Health Organization criteria for BMD impression classify patients as: Normal (T-score at or above -1.0), Osteopenia (T-score between -1.0 and -2.5), or Osteoporosis (T-score at or below -2.5). 10-year Fracture Risk: FRAX not reported because: All T-scores for Spine Total, Hip Total, Femoral Neck at or above -1.0 Clinical Information Provided by Patient: Has the following medical conditions: Hysterectomy Menopause Age: 46 No regular weight bearing exercise Does not regularly consume dairy products Drinks caffeinated beverages Onset of menses at age 14 Number of children 2 Impression: The patient has normal bone mass. Discussion: BONE DENSITY IS ABOVE THE MINIMUM DESIRABLE LEVEL AT ALL SKELETAL SITES TESTED. This patient?s bone mineral density is above the minimum desirable level (T-score -1.0 or better) at all sites measured. The patient should follow a healthful lifestyle (good nutrition with adequate calcium and vitamin D, and appropriate weight-bearing exercise). Follow-Up: Consider repeating this study in 5 years or sooner if there is some new clinical indication. Reported by: SHAHEEN on 12/27/2024 8:16:00 AM. Reviewed, dictated and finalized at location A.
== END 2024-12-26 11:51 | disposition home or self-care (01) ==
PROVIDERS: PCP Internal Medicine; Visit Provider Internal Medicine
DX: Z78.0 Asymptomatic menopausal state (principal)
CPT/HCPCS: 77080

== ENCOUNTER 2025-01-26 11:56 | Outpatient (CLI) | payer MEDICARE, SELFPAY ==
--- NOTE | ~2025-01-26 | CT_ITS ---
EXAMINATION:CT lung screening DATE: 01/26/2025 12:00 INDICATION: Lung cancer screening TECHNIQUE: Computed tomography (CT) of the chest was performed without intravenous contrast. The dose-length product (DLP) was 77.22 mGy-cm. COMPARISON: January 25, 2024 FINDINGS: Tree-in-bud changes in the right upper lobe have almost completely resolved with tiny residual nodules radiographically benign. No new or suspicious nodules. Emphysematous changes in the mid and upper lung castaneda. Heart and great vessels normal in size. No pericardial effusion or bulky lymphadenopathy. Coronary calcification and/or stenting present. No acute process seen in the visual portions of the upper abdomen bony thorax or extrathoracic soft tissues. IMPRESSION: 1. No suspicious lung nodules. Lung RADS 2. Correlate with follow-up low-dose lung cancer screening chest CT in 12 months. Reviewed, dictated and finalized at location A. EAR CRITICALITY SAFETY ENGINEER IMPRESSION: 1. No suspicious lung nodules. Lung RADS 2. Correlate with follow-up low-dose l [place] cancer screening chest CT in 12 months.
== END 2025-01-26 11:57 | disposition home or self-care (01) ==
LOC: CHSIMG 11:57
PROVIDERS: PCP Internal Medicine; Visit Provider Internal Medicine
DX: Z12.2 Encounter for screening for malignant neoplasm of respiratory organs (principal); Z87.891 Personal history of nicotine dependence
CPT/HCPCS: 71271